=== PATIENT | male | born 1930 | race Caucasian/White ===

== ENCOUNTER 2018-01-11 16:43 | Inpatient (IN) | END 2018-01-17 15:28 | disposition home or self-care (01) | DRG 659 ==

== ENCOUNTER 2018-09-07 08:49 | Inpatient (IN) | payer MEDICARE, OTHER ==
[~2018-09-07] VITALS: Ht 162.6 cm; Wt 67.4 kg
[~2018-09-07 08:49] MED LIST: ALLO100T PO; AMLO5TAB4 PO; ASPI81TA52 PO; CALC1TAB93 PO; FER325 PO; ICOS1CAP PO; MEGE40TA2 PO; TAMS0.4C2 PO
[2018-09-07] MEDS ORDERED: morphine 4 MG/ML VIAL IV STA (09:08)
[2018-09-07] MEDS ORDERED: ONDANSETRON 4 MG INJ IV STA (09:08)
[2018-09-07] MEDS ORDERED: SOD CHLORIDE 0.9% 1,000 ML IV STA (09:08)
--- NOTE | 2018-09-07 09:43 | ERD ---
ER Documentation Chief Complaint Chief Complaint RIGHT LOWER QUADRANT RADIATING TO BACK X2 DAYS, VOMITTING YESTERDAY HPI This is an 88-year-old male with a past medical history of hypertension and hydronephrosis with previous urethral stents that have subsequently been removed. The patient presents to the emergency department complaining of right lower quadrant pain for the past 48 hours. He states the pain radiates to his back. States the pain is 10 out of 10 in intensity. The pain is been persistent. He complains of frequent urination and dysuria but denies any urgency. He also indicates that he has been having a tactile fever with shaking chills. No antipyretics were taken prior to arrival. He had 2 episodes of n onbloody nonbilious emesis since the onset of his pain. He has had normal bowel movements with no constipation or diarrhea. He denies any shortness of breath. He has no chest pain. ROS All systems reviewed and are negative except as per history of present illness. Medications Home Meds Reported Medications Allopurinol* (Allopurinol*) 100 Mg Tablet, 100 MG PO DAILY, TAB 09/07/18 Amlodipine Besylate* (Norvasc*) 5 Mg Tablet, 5 MG PO DAILY, TAB 09/07/18 Aspirin* (Aspirin* EC) 81 Mg Tablet.dr, 81 MG PO DAILY, TAB 09/07/18 Tamsulosin Hcl* (Flomax*) 0.4 Mg Cap.er.24h, 0.4 MG PO DAILY, CAP 09/07/18 Metoprolol Tartrate* (Lopressor*) 25 Mg Tab, 25 MG PO BID, #60 TAB 09/07/18 Calcium Carbonate/Vitamin D3 (OYSTER SHELL 500 MG + VIT D TB) 1 Each Tablet, 1 EACH PO DAILY, TAB 09/07/18 Ferrous Sulfate* (Ferrous Sulfate*) 325 Mg Tabec, 650 MG PO DAILY, TAB 09/07/18 Megestrol Acetate* (Megestrol Acetate*) 40 Mg Tablet, 40 MG PO DAILY, TAB 09/07/18 Cyanocobalamin (Vitamin B-12) (Vitamin B-12) 1,000 Mcg Capsule, 1000 MCG PO DAILY, CAP 09/07/18 Icosapent Ethyl (VASCEPA) 1 Gm Capsule, 1 GM PO DAILY, CAP 09/07/18 Discontinued Reported Medications Icosapent Ethyl (VASCEPA) 1 Gm Capsule, 2 GM PO BID, CAP 01/11/18 Megestrol Acetate* (Megestrol Acetate*) 40 Mg Tablet, 40 MG PO DAILY, TAB 01/11/18 Allopurinol* (Allopurinol*) 100 Mg Tablet, 100 MG PO DAILY, TAB 01/11/18 Amlodipine Besylate* (Norvasc*) 5 Mg Tablet, 5 MG PO DAILY, TAB 01/11/18 Ferrous Sulfate* (Ferrous Sulfate*) 325 Mg Tabec, 325 MG PO BID, TAB 01/11/18 Calcium Carbonate/Vitamin D3 (OYSTER SHELL 500 MG + VIT D TB) 1 Each Tablet, 1 EACH PO BID, TAB 01/11/18 Tamsulosin Hcl* (Tamsulosin Hcl*) 0.4 Mg Cap.er.24h, 0.4 MG PO HS, CAP 01/11/18 Aspirin (Low Dose Aspirin) 81 Mg Tablet.dr, 81 MG PO DAILY, #30 TAB 01/11/18 Allergies Allergies: Coded Allergies: No Known Allergy (Unverified , 09/07/18) PMhx/Soc History of Surgery: Yes (CARDIAC STENTS, FEMORAL STENTS, BYPASS, CAD) Anesthesia Reaction: No Hx Neurological Disorder: No Hx Respiratory Disorders: No Hx Cardiac Disorders: Yes (CAD) Hx Psychiatric Problems: No Hx Miscellaneous Medical Probl: Yes (BPH, GOUT, anemia) Hx Alcohol Use: No Hx Substance Use: No Hx Tobacco Use: No Smoking Status: Never smoker Physical Exam Vitals Vital Signs Date Temp Pulse Resp B/P (MAP) Pulse Ox O2 O2 Flow FiO2 Time Delivery Rate 09/07/18 113 20 137/69 96 Room Air 13:22 (91) 09/07/18 98.3 123 16 142/93 97 Room Air 11:00 (109) 09/07/18 98.0 111 18 153/82 99 09:02 (105) Physical Exam Constitutional:Well-developed. Well-nourished. HEENT:Normocephalic. Atraumatic.Pupils were equal round reactive to light. Moist mucous membranes.No tonsillar exudates. Neck: No nuchal rigidity. No lymphadenopathy. No posterior cervical spine tenderness or step-offs. Respiratory: Not using accessory muscles of respiration.Lungs were clear to auscultation bilaterally. No rhonchi. No rales. No wheezing. Cardiovascular: Regular rate regular rhythm.No murmurs. No rubs were appreciated.S1, S2 normal. Distal pulses are palpable 2+ bilaterally. GI: Abdomen was soft. Right lower quadrant tenderness. Negative Herrera sign. Obturator sign negative. Psoas sign negative. Right CVA tenderness. Non Distended. No pulsatile abdominal masses or bruits. No rebound. No guarding. Bowel sounds were present and normal. Muscle skeletal: Full range of motion of both the upper and lower extremities bilaterally.Normal muscle tone.No assymetrical calf tenderness or swelling. Skin: No petechia, no purpura. No lesions on the palms or the soles of the feet. No maculopapular rash. NEURO: Patient was alert, awake, orientated x3.No facial droop. Gait observed and normal with no ataxia.Speech had regular rate and rhythm. No focal ronnie rological deficits. Result Diagram: 09/07/18 0944 09/07/18 0944 Results 24 hrs Laboratory Tests Test 09/07/18 09:44 White Blood Count 13.0 10^3/ul Red Blood Count 3.36 10^6/ul Hemoglobin 9.7 g/dl Hematocrit 30.7 % Mean Corpuscular Volume 91.4 fl Mean Corpuscular Hemoglobin 28.9 pg Mean Corpuscular Hemoglobin Concent 31.6 g/dl Red Cell Distribution Width 15.8 % Platelet Count 157 10^3/UL Mean Platelet Volume 11.1 fl Immature Granulocytes % 0.300 % Neutrophils % 54.4 % Lymphocytes % 38.3 % Monocytes % 5.3 % Eosinophils % 1.2 % Basophils % 0.5 % Nucleated Red Blood Cells % 0.0 /100WBC Immature Granulocytes # 0.040 10^3/ul Neutrophils # 7.1 10^3/ul Lymphocytes # 5.0 10^3/ul Monocytes # 0.7 10^3/ul Eosinophils # 0.2 10^3/ul Basophils # 0.1 10^3/ul Nucleated Red Blood Cells # 0.0 10^3/ul Prothrombin Time 14.7 Sec Prothrombin Time Ratio 1.1 INR International Normalized Ratio 1.14 Activated Partial Thromboplast Time 32.0 Sec Urine Color YELLOW Urine Clarity CLEAR Urine pH 6.0 Urine Specific [place] 1.010 Urine Ketones NEGATIVE mg/dL Urine Nitrite NEGATIVE mg/dL Urine Bilirubin NEGATIVE mg/dL Urine Urobilinogen NEGATIVE mg/dL Urine Leukocyte Esterase 2+ Francis/ul Urine Microscopic RBC 137 /HPF Urine Microscopic WBC 30 /HPF Urine Hemoglobin 3+ mg/dL Urine Glucose NEGATIVE mg/dL Urine Total Protein 1+ mg/dl Sodium Level 143 mmol/L Potassium Level 4.4 mmol/L Chloride Level 114 mmol/L Carbon Dioxide Level 18 mmol/L Anion Gap 11 Blood Urea Nitrogen 45 mg/dl Creatinine 3.44 mg/dl Est Glomerular Filtrat Rate mL/min mL/min Glucose Level 155 mg/dl Calcium Level 8.8 mg/dl Total Bilirubin 0.5 mg/dl Direct Bilirubin 0.00 mg/dl Indirect Bilirubin 0.5 mg/dl Aspartate Amino Transf (AST/SGOT) 11 IU/L Alanine Aminotransferase (ALT/SGPT) 10 IU/L Alkaline Phosphatase 55 IU/L Troponin I < 0.012 ng/ml Total Protein 6.9 g/dl Albumin 3.8 g/dl Globulin 3.10 g/dl Albumin/Globulin Ratio 1.22 Amylase Level 86 U/L Lipase 90 U/L Current Medications Medications Dose Sig/Ema Start Time Status Last (Trade) Ordered Route PRN Stop Time Admin Dose Reason Admin Sodium 1,000 ml @ Q1H STAT 09/07/18 DC 09/07/18 Chloride 1,000 mls/hr IV 09:08 09:49 09/07/18 10:07 Morphine 4 mg ONCE STAT 09/07/18 DC 09/07/18 Sulfate IV 09:08 09:49 (morphine) 09/07/18 09:09 Ondansetron 4 mg ONCE STAT 09/07/18 DC 09/07/18 HCl (Zofran IV 09:08 09:49 Inj) 09/07/18 09:09 Diltiazem 5 mg ONCE ONCE 09/07/18 DC 09/07/18 HCl IV 12:00 11:45 (Cardizem Iv) 09/07/18 12:01 Procedures/[facility] This patient presented to the emergency department with abdominal pain and was seen and evaluated by myself. My differential diagnosis included but was not limited to abdominal aortic aneurysm, appendicitis, pancreatitis, perforated peptic ulcer, perforated viscus, Boerhaaves syndrome or visceral pain such as diverticulitis, DKA, esophagitis, hepatitis or bowel obstruction. The patient was placed on a school bus monitor, continuous pulse oximetry, and IV access was established by nursing staff. Patient given intravenous morphine and Zofran. I obtained a 12-lead EKG tracing to look for atypical myocardial infarction. 12 Lead EKG tracing ordered and reviewed by myself showed: Sinus tachycardia 119 prolonged at 224 ms in all leads consistent with a first- degree AV block. Left axis deviation bpm and no arrhythmia. NV interval QRS duration normal. No ST segment elevation No ST segment depression. No changes consistent with acute ischemia. Given the patient's physical exam findings I do feel is necessary to obtain a CT scan of the abdomen. This was done without contrast due to the patient's elevated creatinine. This is reviewed by the radiologist and indicate the following 1. Left inguinal hernia, containing a short segment of the sigmoid colon without evidence of obstruction or strangulation. This is unchanged since prior study. 2. No gross evidence of bowel obstruction. Stool filled loops of large bowel suggestive of constipation. The appendix is within normal limits. 3. Bilateral hydroureteronephrosis, bilateral double-J ureteric stent in place. There is nonspecific bilateral perinephric fatty stranding. Degree of hydronephrosis is unchanged since prior study. 4. Atherosclerotic calcification of the aorta. Aortoiliac stent graft. 5. Thickening of the travis of the bladder, cannot exclude cystitis. 6. No evidence of free fluid or free air. No gross focal fluid collections. Observation Note: Time: 4 hours Family Hx: No Hypertension Evaluation: Multiple exams showed no improvement of patient's symptoms. The patient continued to have pain. The patient did have a urinary tract infection was given IV ceftriaxone. The patient did have worsening of his renal function as in December 2017 the patient's creatinine was 2.7. Today the patient's creatinine was 3.44. I did feel the patient required admission for IV antibiotics as he did remain tachycardic despite receiving 5 mg of diltiazem. His heart rate of range between 110 and 140. He could not did not complain of any chest pain. He will be admitted to the hospitalist and will go to the telemetry service. The patient also received IV fluids. The patient will be admitted to his primary care physician Dr. Asad Rios Diagnosis: Primary Impression: Renal failure (ARF), acute on chronic Acute renal failure type: unspecified Chronic kidney disease stage: unspecified stage Qualified Codes: N17.9 - Acute kidney failure, unspecified; N18.9 - Chronic kidney disease, unspecified Additional Impressions: Pyelonephritis Tachycardia Condition: Serious TARA THACKER MD Sep 07, 2018 09:43
[2018-09-07] MEDS ORDERED: ICOS1CAP PO (11:00)
[2018-09-07] MEDS ORDERED: CYAN-23 PO (11:01)
[2018-09-07] MEDS ORDERED: FER325 PO (11:02)
[2018-09-07] MEDS ORDERED: MEGE40TA2 PO (11:02)
[2018-09-07] MEDS ORDERED: METO-448 PO (11:03)
[2018-09-07] MEDS ORDERED: CALC1TAB93 PO (11:03)
[2018-09-07] MEDS ORDERED: ASPI-817 PO (11:04)
[2018-09-07] MEDS ORDERED: TAMS-14 PO (11:04)
[2018-09-07] MEDS ORDERED: AMLO5TAB4 PO (11:04)
[2018-09-07] MEDS ORDERED: ALLO100T PO (11:05)
[2018-09-07] MEDS ORDERED: DILTIAZEM 25 MG INJ IV ONE (12:00)
[2018-09-07] MEDS ORDERED: ACETAMINOPHEN 325 MG TAB PO PRN (14:00)
[2018-09-07] MEDS ORDERED: SOD CHLORIDE 0.9% 1,000 ML IV SCH (14:00)
[2018-09-07] MEDS ORDERED: ONDANSETRON 4 MG INJ IV PRN (14:00)
[2018-09-07] MEDS ORDERED: CEFEPIME 2GM/50 ML (PMX) 50 ML IVPB STA (15:11)
[2018-09-07 17:11] VITALS: Ht 162.6 cm; Wt 67.4 kg
[2018-09-07 17:12] VITALS: BP 138/70; PULSE 107; RESP 18
[2018-09-07 18:43] VITALS: PULSE 141
[2018-09-07 19:45] VITALS: BP 129/59; PULSE 90; RESP 18
[2018-09-07 20:00] VITALS: PULSE 108
[2018-09-07] MEDS ORDERED: CEFTAZIDIME 1GM/50 ML (PMX) 50 ML IVPB SCH (20:00)
[2018-09-07] MEDS: CEFTRIAXONE 1 GM/NS 50 ML IVPB SCH (20:07)
[2018-09-07] MEDS: HEPARIN 5,000 UNIT/1 ML VIAL SC SCH (20:33)
[2018-09-07] MEDS ORDERED: METOPROLOL 25 MG TAB PO SCH (21:00)
[2018-09-08] VITALS (11 sets, daily range): BP systolic 125–150; BP diastolic 65–88; PULSE 85–119; RESP 16–19
--- NOTE | 2018-09-08 07:06 | CONS ---
Assessment/Plan Assessment/Plan Hospital Course (Demo Recall) 1. Tachycardia: Appears to be sinus with frequent PACs so far no clear atrial fibrillation 2. Coronary artery disease with history of non-ST elevation myocardial infarction in 2012, currently with no more angina 3. History of PCI of his right coronary artery in 2012 4. Acute renal failure 5. Urinary obstruction: Status post cystoscopy on 01/12/2018 6. Hyperkalemia 7. Dyslipidemia 8. Peripheral vascular disease 9. Hypertension 10. Anemia 11. History of pulmonary nodule Recommendations: I will increase the metoprolol. Titrated as needed. Antibiotic management as per IM/and possibly ID operational risk consultant Renal work-up and treatment as per Dr. Kamara Thank you for his referral. We will continue to follow along with you BRONSON KISER MD [facility] Consultation Date/Type/Reason Admit Date/Time Sep 07, 2018 at 13:43 Date of Consultation: Sep 08, 2018 Type of Consult Cardiology Reason for Consultation Tachycardia, rule out arrhythmia Requesting Provider: LORENZO KAMARA DO Date/Time of Note DATE: 09/08/18 TIME: 07:01 Hx of Present Illness Interventional cardiology consultation note Chief complaint: Abdominal pain/nausea vomiting Reason for consult: Tachycardia rule out atrial fibrillation History of present illness: Thank you for this referral. History was obtained from the patient and discussion with physicians and staff. From review of the old charts. This is an 88-year-old male with a past medical history of hypertension, history of coronary artery disease, status post PCI of his right coronary artery a few years ago, history of peripheral vascular disease, history of dyslipidemia, history of chronic kidney disease history of osteoporosis who presents to [facility] with complaints of abdominal pain and nausea. Patient has been diagnosed with a urinary tract infection. Patient has been tachycardic. Possible a possible went to atrial fibrillation however review of the rhythm so myself to the patient has remained in sinus rhythm but has had very frequent PACs that makes the rhythm very irregular. Patient denies any left-sided chest pain or pressure. He does not walk much Patient himself is a very poor historian. At time he does not even know why he is in the hospital PAST MEDICAL HISTORY: As stated above, history of chronic kidney disease, history of hypertension, dyslipidemia, peripheral vascular disease. Coronary artery disease status post non-ST elevation myocardial infarction, PCI of his right coronary artery in 2012 PAST SURGICAL HISTORY: PCI of his right coronary artery in June 2012, status post aortofemoral bypass. FAMILY HISTORY: No family history of early coronary artery disease SOCIAL HISTORY: Does not drink, smoke or do drugs. He has quit smoking many years ago MEDICATIONS: Patient's medications had been reviewed and reconciled. ALLERGIES: NO KNOWN DRUG ALLERGIES. Review of system: Patient denies all others except for above-mentioned Past Medical History Home Meds Reported Medications Allopurinol* (Allopurinol*) 100 Mg Tablet, 100 MG PO DAILY, TAB 09/07/18 Amlodipine Besylate* (Norvasc*) 5 Mg Tablet, 5 MG PO DAILY, TAB 09/07/18 Aspirin* (Aspirin* EC) 81 Mg Tablet.dr, 81 MG PO DAILY, TAB 09/07/18 Tamsulosin Hcl* (Flomax*) 0.4 Mg Cap.er.24h, 0.4 MG PO DAILY, CAP 09/07/18 Metoprolol Tartrate* (Lopressor*) 25 Mg Tab, 25 MG PO BID, #60 TAB 09/07/18 Calcium Carbonate/Vitamin D3 (OYSTER SHELL 500 MG + VIT D TB) 1 Each Tablet, 1 EACH PO DAILY, TAB 09/07/18 Ferrous Sulfate* (Ferrous Sulfate*) 325 Mg Tabec, 650 MG PO DAILY, TAB 09/07/18 Megestrol Acetate* (Megestrol Acetate*) 40 Mg Tablet, 40 MG PO DAILY, TAB 09/07/18 Cyanocobalamin (Vitamin B-12) (Vitamin B-12) 1,000 Mcg Capsule, 1000 MCG PO DAILY, CAP 09/07/18 Icosapent Ethyl (VASCEPA) 1 Gm Capsule, 1 GM PO DAILY, CAP 09/07/18 Discontinued Reported Medications Icosapent Ethyl (VASCEPA) 1 Gm Capsule, 2 GM PO BID, CAP 01/11/18 Megestrol Acetate* (Megestrol Acetate*) 40 Mg Tablet, 40 MG PO DAILY, TAB 01/11/18 Allopurinol* (Allopurinol*) 100 Mg Tablet, 100 MG PO DAILY, TAB 01/11/18 Amlodipine Besylate* (Norvasc*) 5 Mg Tablet, 5 MG PO DAILY, TAB 01/11/18 Ferrous Sulfate* (Ferrous Sulfate*) 325 Mg Tabec, 325 MG PO BID, TAB 01/11/18 Calcium Carbonate/Vitamin D3 (OYSTER SHELL 500 MG + VIT D TB) 1 Each Tablet, 1 EACH PO BID, TAB 01/11/18 Tamsulosin Hcl* (Tamsulosin Hcl*) 0.4 Mg Cap.er.24h, 0.4 MG PO HS, CAP 01/11/18 Aspirin (Low Dose Aspirin) 81 Mg Tablet.dr, 81 MG PO DAILY, #30 TAB 01/11/18 Medications Current Medications Ondansetron HCl (Zofran Inj) 4 mg ER BRIDGE PRN IV NAUSEA/VOMITING; Start 09/07/18 at 14:00; Stop 09/08/18 at 13:59 Acetaminophen (Tylenol Tab) 650 mg ER BRIDGE PRN PO .MILD PAIN 1-3 OR TEMP; Start 09/07/18 at 14:00; Stop 09/08/18 at 13:59 Allopurinol (Zyloprim) 100 mg DAILY PO ; Start 09/08/18 at 09:00 Aspirin (Halfprin) 81 mg DAILY PO ; Start 09/08/18 at 09:00 Calcium/Vitamin D (Oyster Shell/ Vit-D (500/200)) 1 tab DAILY PO ; Start 09/08/18 at 09:00 Ferrous Sulfate (Ferrous Sulfate (Ec)) 650 mg DAILY PO ; Start 09/08/18 at 09:00 Megestrol Acetate (Megace) 40 mg DAILY PO ; Start 09/08/18 at 09:00 Tamsulosin HCl (Flomax) 0.4 mg DAILY@2100 PO ; Start 09/08/18 at 21:00 Sodium Chloride 1,000 ml @ 50 mls/hr Q20H IV Last administered on 09/07/18at 18:06; Admin Dose 50 MLS/HR; Start 09/07/18 at 14:00 Ceftriaxone Sodium 50 ml @ 100 mls/hr Q24H IVPB Last administered on 09/07/18at 20:07; Admin Dose 100 MLS/HR; Start 09/07/18 at 20:00 Heparin Sodium (Porcine) (Heparin (5000 Units/1ml)) 5,000 unit BID SC Last administered on 09/07/18at 20:33; Admin Dose 5,000 UNIT; Start 09/07/18 at 21:00 Metoprolol Tartrate (Lopressor) 50 mg BID PO ; Start 09/08/18 at 09:00; Status UNV Allergies: Coded Allergies: No Known Allergy (Unverified , 09/07/18) Past Surgical History Past Surgical Hx: other Social History Smoking Status: Former smoker Exam/Review of Systems Vital Signs Vitals Vital Signs Date Temp Pulse Resp B/P (MAP) Pulse Ox O2 O2 Flow FiO2 Time Delivery Rate 09/08/18 94 04:00 09/08/18 99.0 18 142/65 92 Room Air 03:35 (90) Intake and Output 09/07/18 09/07/18 09/08/18 1515:00 23:00 07:00 IntakeIntake Total 50 ml 690 ml OutputOutput Total 700 ml BalanceBalance 50 ml -10 ml Exam Exam General: no acute distress HEENT: NC/AT. pupils are equal. round. NECK: NO JVD. no stridor. CV: Tachycardic. systolic murmur; no gallop or rubs. PULM: no wheezing or rhonchi. GI: SOFT, no tenderness, ND, no rebound or guarding Extremity: trace B/L LE edema. no clubbing. neuro: awake and alert, OX2. Psych: calm and pleasant rectal: deferred : normal EKG was presented to sinus rhythm with frequent PACs Review of the old chart showed 2018 echocardiogram which was personally reviewed and showed normal ejection fraction about 55% Labs Result Diagram: 09/08/18 0559 09/08/18 0559 Results 24hrs Laboratory Tests Test 09/07/18 09:44 09/07/18 15:37 09/08/18 05:59 White Blood Count 13.0 #H 11.2 H Red Blood Count 3.36 #L 3.10 L Hemoglobin 9.7 #L 9.1 L Hematocrit 30.7 #L 28.3 L Mean Corpuscular Volume 91.4 91.3 Mean Corpuscular Hemoglobin 28.9 L 29.4 Mean Corpuscular Hemoglobin Concent 31.6 L 32.2 Red Cell Distribution Width 15.8 H 15.5 H Platelet Count 157 154 Mean Platelet Volume 11.1 H 11.5 H Immature Granulocytes % 0.300 0.400 Neutrophils % 54.4 49.7 Lymphocytes % 38.3 40.9 Monocytes % 5.3 6.4 Eosinophils % 1.2 2.2 Basophils % 0.5 0.4 Nucleated Red Blood Cells % 0.0 0.0 Immature Granulocytes # 0.040 H 0.040 H Neutrophils # 7.1 5.5 Lymphocytes # 5.0 H 4.6 H Monocytes # 0.7 0.7 Eosinophils # 0.2 0.3 Basophils # 0.1 0.1 Nucleated Red Blood Cells # 0.0 0.0 Prothrombin Time 14.7 Prothrombin Time Ratio 1.1 INR International Normalized Ratio 1.14 Activated Partial Thromboplast Time 32.0 Urine Color YELLOW Urine Clarity CLEAR Urine pH 6.0 Urine Specific [place] 1.010 Urine Ketones NEGATIVE Urine Nitrite NEGATIVE Urine Bilirubin NEGATIVE Urine Urobilinogen NEGATIVE Urine Leukocyte Esterase 2+ H Urine Microscopic RBC 137 H Urine Microscopic WBC 30 H Urine Hemoglobin 3+ H Urine Glucose NEGATIVE Urine Total Protein 1+ H Sodium Level 143 145 H Potassium Level 4.4 5.3 H Chloride Level 114 H 119 H Carbon Dioxide Level 18 L 18 L Anion Gap 11 8 Blood Urea Nitrogen 45 H 41 H Creatinine 3.44 H 3.32 H Est Glomerular Filtrat Rate mL/min Glucose Level 155 100 # Hemoglobin A1c 5.6 Calcium Level 8.8 8.5 Total Bilirubin 0.5 Direct Bilirubin 0.00 Indirect Bilirubin 0.5 Aspartate Amino Transf (AST/SGOT) 11 L Alanine Aminotransferase (ALT/SGPT) 10 L Alkaline Phosphatase 55 Troponin I < 0.012 Total Protein 6.9 Albumin 3.8 Globulin 3.10 Albumin/Globulin Ratio 1.22 Amylase Level 86 Lipase 90 POC Venous Lactate 1.5 Phosphorus Level 3.7 Magnesium Level 1.8 Medications Medications Current Medications Ondansetron HCl (Zofran Inj) 4 mg ER BRIDGE PRN IV NAUSEA/VOMITING; Start 09/07/18 at 14:00; Stop 09/08/18 at 13:59 Acetaminophen (Tylenol Tab) 650 mg ER BRIDGE PRN PO .MILD PAIN 1-3 OR TEMP; Start 09/07/18 at 14:00; Stop 09/08/18 at 13:59 Allopurinol (Zyloprim) 100 mg DAILY PO ; Start 09/08/18 at 09:00 Aspirin (Halfprin) 81 mg DAILY PO ; Start 09/08/18 at 09:00 Calcium/Vitamin D (Oyster Shell/ Vit-D (500/200)) 1 tab DAILY PO ; Start 09/08/18 at 09:00 Ferrous Sulfate (Ferrous Sulfate (Ec)) 650 mg DAILY PO ; Start 09/08/18 at 09:00 Megestrol Acetate (Megace) 40 mg DAILY PO ; Start 09/08/18 at 09:00 Tamsulosin HCl (Flomax) 0.4 mg DAILY@2100 PO ; Start 09/08/18 at 21:00 Sodium Chloride 1,000 ml @ 50 mls/hr Q20H IV Last administered on 09/07/18at 18:06; Admin Dose 50 MLS/HR; Start 09/07/18 at 14:00 Ceftriaxone Sodium 50 ml @ 100 mls/hr Q24H IVPB Last administered on 09/07/18at 20:07; Admin Dose 100 MLS/HR; Start 09/07/18 at 20:00 Heparin Sodium (Porcine) (Heparin (5000 Units/1ml)) 5,000 unit BID SC Last administered on 09/07/18at 20:33; Admin Dose 5,000 UNIT; Start 09/07/18 at 21:00 Metoprolol Tartrate (Lopressor) 50 mg BID PO ; Start 09/08/18 at 09:00; Status BRONSON YOUNG MD Sep 08, 2018 07:06
--- NOTE | 2018-09-08 09:05 | CONS ---
DATE OF ADMISSION: 09/07/2018 DATE OF CONSULTATION: 09/07/2018 TYPE OF CONSULTATION: Infectious Disease. REASON FOR CONSULTATION: Antibiotic management. HISTORY OF PRESENT ILLNESS: Gio Bird is an 88-year-old male who comes in with right lower quadrant pain radiating to his back with nausea and vomiting yesterday. The patient's history includes: 1. Hypertension. 2. Hydronephrosis with previous ureteral stents that have been subsequently removed. The patient co mes in with right lower quadrant pain of 48 hours duration. The pain radiates to the back and is 10/ 10 in intensity, is persistent. He complains of frequent urination and dysuria without urgency. He has had tactile fever without shaking chills. No antipyretics were taken prior to arrival, he had 2 episodes of nonbloody, nonbilious emesis. He has had normal bowel movements with no constipation or diarrhea. He denies any shortness of breath. PAST MEDICAL HISTORY: Operations include cardiac stent, femoral stents, bypass and coronary artery d isease. The patient has BPH, gout, anemia. FAMILY HISTORY: Noncontributory. SOCIAL HISTORY: He does not smoke, drink or abuse drugs. ALLERGIES: NONE TO PENICILLIN, SULFA OR FOODS. MEDICATIONS: Per chart. REVIEW OF SYSTEMS: As per HPI. PHYSICAL EXAMINATION: GENERAL: The patient is well-developed, well-nourished male who is alert, responsive, in no acute di stress. VITAL SIGNS: Stable. He is afebrile. SKIN: Without generalized rash. HEENT: Within normal limits. NECK: Supple. LYMPH NODES: None palpable. CHEST: Decreased breath sounds at the bases. HEART: Without murmur or gallop. ABDOMEN: Soft with right lower quadrant tenderness. Negative Herrera sign. He has right CVA tendern ess. No pulsatile masses. EXTREMITIES: Without cyanosis, clubbing, or edema. RECTAL AND GENITAL: Deferred. NEUROLOGIC: No focal neurological abnormalities. LABORATORY DATA: White count 13,000, H and H 9.7 and 30.7, platelet count 157,000 with 54% neutrophi ls. BUN and creatinine is 45/3.44, consistent with renal failure and a glucose random of 155. His urinalysis shows 2+ leukocyte esterase, 30 white cells per high-power field, 137 RBCs per high-power field. HOSPITAL COURSE: The patient's chest x-ray shows no evidence for active cardiopulmonary disease, tone cified thoracic aortic arch. No evidence for an infiltrate. CT scan of the abdomen and pelvis shows bilateral bronchiectasis with bilateral reticular interstitial opacities, hepatic morphology within normal limits. Gallbladder unremarkable. No evidence of intrahepatic or extrahepatic biliary dilata tion. The spleen and pancreas are within normal limits. Both adrenals are within normal limits. Bi lateral double J ureteric stents are identified. Nonspecific bilateral perinephric fatty stranding, both kidneys are in anatomic position and aortoiliac stent graft is noted. CT scan shows a left ingu inal hernia segment of the sigmoid colon without evidence of obstruction and strangulation double J u reteric stents are noted in place. Prostate gland is mildly enlarged. Rectosigmoid colon demonstrat es stool. There are bilateral reticular hydroceles. IMPRESSION AND PLAN: The patient seems to have urinary tract infection and should be started on at l east the cefepime if not meropenem. At the present time, I do not see that the patient is on any ant ibiotics. I will dictate my findings to the hospitalist. Dictated By: NI CHONG MD, JD/VINICIO Conf#: [id number] DID#: [id number]
--- NOTE | 2018-09-08 10:22 | HP ---
DATE OF ADMISSION: 09/07/2018 CHIEF COMPLAINT: Fevers, chills, tachycardia. HISTORY OF PRESENT ILLNESS: This is an 88-year-old male with a past medical history of hypertension, history of coronary artery disease, history of peripheral vascular disease status post stent, histor y of dyslipidemia, history of chronic kidney disease stage IV, baseline creatinine around 2.5 mg/dL, history of osteoporosis and history of bilateral hydroureteronephrosis, status post bilateral ureter double J stent who presents to [facility] with complaints of fevers, chills, abdomi nal pain. The patient in 12/2017, was diagnosed with bilateral hydroureteronephrosis. During that t denia, the patient was seen by urologist, Dr. Slater, and has had bilateral ureteral double-J stent pl acement. The patient has been having removal and replacement of the stent every 2 [address] Slater. Most recently, patient's double J stents were replaced approximately 4 weeks ago. The pat nael now presents with complaints of right lower quadrant pain for the last 48 hours with radiation t o his back. The patient is also complaining about frequent urination. The patient also describes geiger ving chills. Upon arrival to the emergency room, the patient had 2 episodes of nonbilious emesis. T he patient was noted to have heart rate of 123. In the emergency room, the patient had a CT scan of bilateral hydroureteronephrosis with double-J stent placement. No significant change. The patient w as given IV fluids, antibiotic therapy, was given IV Cardizem and admitted to telemetry for evaluatio n. Upon my evaluation of the patient at this time, he is currently stable. He denies any hemoptysis, he matemesis or hematochezia. The patient continues to describe back pain, but states it is improving. He denies any rashes. PAST MEDICAL HISTORY: As stated above, history of hypertension, history of peripheral vascular disea se, history of chronic kidney disease stage IIIB, history of bilateral hydroureteronephrosis status p ost change double-J stent placement, history of coronary artery disease, history of dyslipidemia. PAST SURGICAL HISTORY: Status post PCI, status post aortofemoral bypass, status post bilateral urete ral stent placement. FAMILY HISTORY: No family history of kidney disease. SOCIAL HISTORY: He does not drink, smoke or do drugs. MEDICATIONS: Reviewed. ALLERGIES: NO KNOWN DRUG ALLERGIES. REVIEW OF SYSTEMS: A 14-point review of systems was conducted. Pertinent positives stated in HPI, o therwise negative. PHYSICAL EXAMINATION: VITAL SIGNS: Blood pressure is 138/70, respirations 18, pulse 107, temperature 98.6. HEENT: Head is normocephalic. Pupils are reactive to light. NECK: Supple. HEART: Tachycardic. LUNGS: Show diminished breath sounds at the base. ABDOMEN: Soft, mild tenderness to palpation. No rebound or guarding. EXTREMITIES: Negative for clubbing, cyanosis, no edema. DERMATOLOGIC: No rashes. MUSCULOSKELETAL: No joint effusion. NEUROLOGIC: No focal deficits. LABORATORY DATA: Reviewed. Urinalysis has been reviewed. IMAGING STUDIES: Reviewed. ASSESSMENT AND PLAN: This is an 88-year-old male who presents with: 1. Sepsis, etiology is secondary to urinary tract infection, cystitis, possible pyelonephritis. The patient's urinalysis showed evidence of pyuria. CT abdomen and pelvis was obtained, which showed ev idence of perinephric stranding. Plan at this point is to check blood cultures, urine cultures. We will continue the patient on broad spectrum antibiotic therapy. Continue IV fluids. We will place a n ID consult for evaluation and monitor. 2. Bilateral hydroureteronephrosis with double-J stent placement. The patient has a chronic hydrour eteronephrosis. Plan at this point is to get a urology consult for evaluation. We will continue to monitor. 3. Nonoliguric acute kidney injury on top of chronic kidney disease stage IV with previous baseline creatinine around 2.53 mg/dL. Etiology of acute kidney injury may be secondary to hemodynamics, volu me depletion, possible septic acute kidney injury. Plan at this point is to check UA with microanaly sis, check urine electrolytes. We will continue IV hydration, monitor renal function closely. 4. Metabolic acidosis secondary to acute kidney injury. Monitor closely. No need for bicarbonate t herapy. 5. Anemia. Continue to monitor hemoglobin and hematocrit levels. 7. Mineral bone disorder, monitor calcium and phosphorus levels. 8. Tachycardia. Etiology may be secondary to volume depletion and sepsis. Continue to monitor. Ca rdiology consult was placed for evaluation. 9. Hypertension. Continue current blood pressure regimen. 10. History of peripheral vascular disease status post bypass. Continue medical management. 11. General debility. Continue to monitor. 12. Abdominal pain, possibly due to cystitis. Continue to monitor. 13. Gastrointestinal and deep vein thrombosis prophylaxis. Please note I spent additional 30 minutes of [id number] time with the patient, discussing advanced directives and code status. The patient is FULL CODE. Dictated By: LORENZO GARCIA DO NR/NTS Conf#: [id number] DID#: [id number] CC: LORENZO GARCIA DO;*EndCC*
[2018-09-08] MEDS: CALCIUM/VITAMIN D (500/200) TAB PO SCH (10:50)
[2018-09-08] MEDS: ASPIRIN (EC) 81 MG TAB PO SCH (10:50)
[2018-09-08] MEDS: ALLOPURINOL 100 MG TAB PO SCH (10:51)
[2018-09-08] MEDS: MEGESTROL 40 MG TAB PO SCH (10:51)
[2018-09-08] MEDS: FERROUS SULFATE (EC) 325 MG TAB PO SCH (10:51)
[2018-09-08] MEDS: METOPROLOL 25 MG TAB PO SCH ×2 (10:51→20:35)
[2018-09-08] MEDS: SODIUM BICARBONATE IV SCH (10:53)
[2018-09-08] MEDS: DEXTROSE 5% IV SCH (10:53)
[2018-09-08] MEDS: HEPARIN 5,000 UNIT/1 ML VIAL SC SCH ×2 (11:04→20:46)
--- NOTE | 2018-09-08 13:29 | PN ---
DATE: 09/08/2018 SUBJECTIVE: The patient is stable. Continue to have episodes of PVCs on telemetry. No other acute events noted. OBJECTIVE: VITAL SIGNS: Blood pressure is 150/75, respirations 18, pulse 112, temperature 98.5. HEENT: Head is normocephalic. NECK: Supple. HEART: Regular rate. LUNGS: Show diminished breath sounds at the base. ABDOMEN: Soft, nontender to palpation without rebound or guarding. EXTREMITIES: Negative for clubbing, cyanosis, trace edema. DERMATOLOGIC: No rashes. MUSCULOSKELETAL: No joint effusion. NEUROLOGIC: No change in exam. MEDICATIONS: Reviewed. LABORATORY DATA: Reviewed. IMAGING STUDIES: Reviewed. ASSESSMENT AND PLAN: 1. Sepsis secondary to probable urinary tract infection, pyelonephritis. We will continue current a ntibiotic regimen. Follow up with Infectious Disease. Follow up cultures. 2. Nonoliguric acute kidney injury on top of chronic kidney disease with previous baseline creatinin e around 2.5 to 3 mg/dL. Etiology of acute kidney injury may be secondary to hemodynamics versus pro gression of chronic kidney disease. The patient does have chronic bilateral hydroureteronephrosis. No significant change per imaging studies. We will continue current treatment plan. Continue IV flu ids, monitor closely. 3. Chronic bilateral hydroureteronephrosis. The patient is status post double-J stent placement. C chantalue to monitor. Follow up with urology. 4. Metabolic acidosis secondary to acute kidney injury. We will start the patient on bicarbonate th erapy. 5. Mild hyperkalemia. Continue to monitor. The patient will be placed on renal diet. 6. Anemia. Continue to monitor hemoglobin and hematocrit levels. 7. Hypertension. Continue current blood pressure regimen. 8. History of peripheral vascular disease status post bypass. Continue current treatment plan. 9. History of coronary artery disease. Continue medical management. 10. Arrhythmia. Continue to monitor. Follow up with Cardiology. 11. Mineral bone disorder. 12. Gastrointestinal and deep vein thrombosis prophylaxis. 13. Hypernatremia. The patient will be placed on hypertonic fluid. Continue to encourage free wate r intake. Dictated By: LORENZO GARCIA DO NR/NTS Conf#: [id number] DID#: [id number] CC: LORENZO GARCIA DO;*EndCC*
--- NOTE | 2018-09-08 13:59 | CONS ---
Assessment/Plan Assessment/Plan Hospital Course (Demo Recall) No acute changes overnight patient is awake looks comfortable no fevers overnight WBC 11.2 no shift no bands BUN 41 creatinine 3.32 Urinalysis on admission was positive, urine culture preliminary negative CT of the abdomen and pelvis showed no gross evidence of bowel obstruction bilateral hydronephrosis, bilateral double-J ureteric stent in place nonspecific bilateral perinephric fatty stranding. Degree of hydronephrosis is unchanged since the prior study. Please see full report in the chart Antimicrobials: Patient is on Rocephin Physical examination: Well-developed fragile elderly man who is awake in no distress head atraumatic normocephalic neck is supple chest rise sy mmetrical breath sounds diminished bases heart S1-S2 abdomen soft bowel sounds present Assessment: 1. Systemic inflammatory response syndrome 2. Acute pyelonephritis 3. Chronic kidney disease 4. History of bilateral JJ stent placements 5. Peripheral arterial disease, history of bypass graft Plan: Patient remains stable, continue present care antibiotics await for urology evaluation Consultation Date/Type/Reason Admit Date/Time Sep 07, 2018 at 13:43 Initial Consult Date 09/08/18 Type of Consult id Requesting Provider: LORENZO GARCIA DO Date/Time of Note DATE: 09/08/18 TIME: 13:59 Exam/Review of Systems Exam Vitals Vital Signs Date Temp Pulse Resp B/P (MAP) Pulse Ox O2 O2 Flow FiO2 Time Delivery Rate 09/08/18 98.0 115 16 125/88 97 11:12 (100) 09/08/18 Room Air 03:35 Intake and Output 09/07/18 09/07/18 09/08/18 1515:00 23:00 07:00 IntakeIntake Total 50 ml 690 ml OutputOutput Total 700 ml BalanceBalance 50 ml -10 ml Results Result Diagram: 09/08/18 0559 09/08/18 0559 Results 24hrs Laboratory Tests Test 09/07/18 15:37 09/08/18 05:59 POC Venous Lactate 1.5 White Blood Count 11.2 H Red Blood Count 3.10 L Hemoglobin 9.1 L Hematocrit 28.3 L Mean Corpuscular Volume 91.3 Mean Corpuscular Hemoglobin 29.4 Mean Corpuscular Hemoglobin Concent 32.2 Red Cell Distribution Width 15.5 H Platelet Count 154 Mean Platelet Volume 11.5 H Immature Granulocytes % 0.400 Neutrophils % 49.7 Lymphocytes % 40.9 Monocytes % 6.4 Eosinophils % 2.2 Basophils % 0.4 Nucleated Red Blood Cells % 0.0 Immature Granulocytes # 0.040 H Neutrophils # 5.5 Lymphocytes # 4.6 H Monocytes # 0.7 Eosinophils # 0.3 Basophils # 0.1 Nucleated Red Blood Cells # 0.0 Sodium Level 145 H Potassium Level 5.3 H Chloride Level 119 H Carbon Dioxide Level 18 L Anion Gap 8 Blood Urea Nitrogen 41 H Creatinine 3.32 H Est Glomerular Filtrat Rate mL/min Glucose Level 100 # Calcium Level 8.5 Phosphorus Level 3.7 Magnesium Level 1.8 Medications Medication Current Medications Allopurinol (Zyloprim) 100 mg DAILY PO Last administered on 09/08/18 10:51; Admin Dose 100 MG; Start 09/08/18 at 09:00 Aspirin (Halfprin) 81 mg DAILY PO Last administered on 09/08/18 10:50; Admin Dose 81 MG; Start 09/08/18 at 09:00 Calcium/Vitamin D (Oyster Shell/ Vit-D (500/200)) 1 tab DAILY PO Last administered on 09/08/18 10:50; Admin Dose 1 TAB; Start 09/08/18 at 09:00 Ferrous Sulfate (Ferrous Sulfate (Ec)) 650 mg DAILY PO Last administered on 09/08/18 10:51; Admin Dose 650 MG; Start 09/08/18 at 09:00 Megestrol Acetate (Megace) 40 mg DAILY PO Last administered on 09/08/18 10:51; Admin Dose 40 MG; Start 09/08/18 at 09:00 Tamsulosin HCl (Flomax) 0.4 mg DAILY@2100 PO ; Start 09/08/18 at 21:00 Ceftriaxone Sodium 50 ml @ 100 mls/hr Q24H IVPB Last administered on 09/07/18 20:07; Admin Dose 100 MLS/HR; Start 09/07/18 at 20:00 Heparin Sodium (Porcine) (Heparin (5000 Units/1ml)) 5,000 unit BID SC Last administered on 09/08/18 11:04; Admin Dose 5,000 UNIT; Start 09/07/18 at 21:00 Metoprolol Tartrate (Lopressor) 50 mg BID PO Last administered on 6/19/19at 10:51; Admin Dose 50 MG; Start 09/08/18 at 09:00 Sodium Bicarbonate 75 meq/Dextrose 1,000 ml @ 50 mls/hr Q20H IV Last administered on 09/08/18at 10:53; Admin Dose 50 MLS/HR; Start 09/08/18 at 10:00 TIM MOSELEY NP Sep 08, 2018 13:59
--- NOTE | 2018-09-08 17:39 | CONS ---
Assessment/Plan Assessment/Plan Hospital Course (Demo Recall) 88-year-old male well-known to me from prior admissions. He presented to the emergency room complaining of fever, chills and abdominal pain. 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 He did have bilateral JJ stent placed and these were replaced about 4 weeks ago. Patient also had 2 episodes of vomiting and he describes his pain to be in the right lower quadrant radiating to his back CT scan of the abdomen and pelvis did show: 1. Left inguinal hernia, containing a short segment of the sigmoid colon without evidence of obstruction or strangulation. This is unchanged since prior study. 2. No gross evidence of bowel obstruction. Stool filled loops of large bowel suggestive of constipation. The appendix is within normal limits. 3. Bilateral hydroureteronephrosis, bilateral double-J ureteric stent in place. There is nonspecific bilateral perinephric fatty stranding. Degree of hydronephrosis is unchanged since prior study. 4. Atherosclerotic calcification of the aorta. Aortoiliac stent graft. 5. Thickening of the travis of the bladder, cannot exclude cystitis. 6. No evidence of free fluid or free air. No gross focal fluid collections. The urine culture on admission showed no growth so far. His hydronephrosis has not changed and the bilateral JJ stents are in good position. His lower abdominal pain could be related also to pelvic fibrosis which is causing encasement of the ureters and other pelvic structures. From a urological standpoint we will continue the antibiotic and see if the urine culture shows anything and will have to change the stents in about couple of months. Consultation Date/Type/Reason Admit Date/Time Sep 07, 2018 at 13:43 Date of Consultation: Sep 08, 2018 Type of Consult Urology Reason for Consultation Bilateral hydronephrosis and urinary tract infection Requesting Provider: LORENZO GARCIA DO Date/Time of Note DATE: 09/08/18 TIME: 17:21 Hx of Present Illness 88-year-old male well-known to me from prior admissions. He presented to the emergency room complaining of fever, chills and abdominal pain. 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 He did have bilateral JJ stent placed a nd these were replaced about 4 weeks ago. Patient also had 2 episodes of vomiting and he describes his pain to be in the right lower quadrant radiating to his back Constitutional: chills (Prior to admission), febrile (Prior to admission) Eyes: no complaints ENT: no complaints Respiratory: no complaints; No shortness of breath Cardiovascular: No chest pain Gastrointestinal: pain (Right lower quadrant) Genitourinary: dysuria Musculoskeletal: no complaints Skin: no complaints Neurologic: no complaints Endocrine: no complaints Lymphatic: no complaints Psychological: no complaints Immunologic: no complaints Past Medical History Medical History: coronary artery disease, high cholesterol, hypertension, renal disease (Chronic stage IV), other (Osteoporosis and peripheral vascular disease) Home Meds Reported Medications Allopurinol* (Allopurinol*) 100 Mg Tablet, 100 MG PO DAILY, TAB 09/07/18 Amlodipine Besylate* (Norvasc*) 5 Mg Tablet, 5 MG PO DAILY, TAB 09/07/18 Aspirin* (Aspirin* EC) 81 Mg Tablet.dr, 81 MG PO DAILY, TAB 09/07/18 Tamsulosin Hcl* (Flomax*) 0.4 Mg Cap.er.24h, 0.4 MG PO DAILY, CAP 09/07/18 Metoprolol Tartrate* (Lopressor*) 25 Mg Tab, 25 MG PO BID, #60 TAB 09/07/18 Calcium Carbonate/Vitamin D3 (OYSTER SHELL 500 MG + VIT D TB) 1 Each Tablet, 1 EACH PO DAILY, TAB 09/07/18 Ferrous Sulfate* (Ferrous Sulfate*) 325 Mg Tabec, 650 MG PO DAILY, TAB 09/07/18 Megestrol Acetate* (Megestrol Acetate*) 40 Mg Tablet, 40 MG PO DAILY, TAB 09/07/18 Cyanocobalamin (Vitamin B-12) (Vitamin B-12) 1,000 Mcg Capsule, 1000 MCG PO DAILY, CAP 09/07/18 Icosapent Ethyl (VASCEPA) 1 Gm Capsule, 1 GM PO DAILY, CAP 09/07/18 Discontinued Reported Medications Icosapent Ethyl (VASCEPA) 1 Gm Capsule, 2 GM PO BID, CAP 01/11/18 Megestrol Acetate* (Megestrol Acetate*) 40 Mg Tablet, 40 MG PO DAILY, TAB 01/11/18 Allopurinol* (Allopurinol*) 100 Mg Tablet, 100 MG PO DAILY, TAB 10/22/18 Amlodipine Besylate* (Norvasc*) 5 Mg Tablet, 5 MG PO DAILY, TAB 01/11/18 Ferrous Sulfate* (Ferrous Sulfate*) 325 Mg Tabec, 325 MG PO BID, TAB 01/11/18 Calcium Carbonate/Vitamin D3 (OYSTER SHELL 500 MG + VIT D TB) 1 Each Tablet, 1 EACH PO BID, TAB 01/11/18 Tamsulosin Hcl* (Tamsulosin Hcl*) 0.4 Mg Cap.er.24h, 0.4 MG PO HS, CAP 01/11/18 Aspirin (Low Dose Aspirin) 81 Mg Tablet.dr, 81 MG PO DAILY, #30 TAB 01/11/18 Medications Current Medications Allopurinol (Zyloprim) 100 mg DAILY PO Last administered on 09/08/18 10:51; Admin Dose 100 MG; Start 09/08/18 at 09:00 Aspirin (Halfprin) 81 mg DAILY PO Last administered on 09/08/18 10:50; Admin Dose 81 MG; Start 09/08/18 at 09:00 Calcium/Vitamin D (Oyster Shell/ Vit-D (500/200)) 1 tab DAILY PO Last administered on 09/08/18 10:50; Admin Dose 1 TAB; Start 09/08/18 at 09:00 Ferrous Sulfate (Ferrous Sulfate (Ec)) 650 mg DAILY PO Last administered on 09/08/18 10:51; Admin Dose 650 MG; Start 09/08/18 at 09:00 Megestrol Acetate (Megace) 40 mg DAILY PO Last administered on 09/08/18 10:51; Admin Dose 40 MG; Start 09/08/18 at 09:00 Tamsulosin HCl (Flomax) 0.4 mg DAILY@2100 PO ; Start 09/08/18 at 21:00 Ceftriaxone Sodium 50 ml @ 100 mls/hr Q24H IVPB Last administered on 09/07/18 20:07; Admin Dose 100 MLS/HR; Start 09/07/18 at 20:00 Heparin Sodium (Porcine) (Heparin (5000 Units/1ml)) 5,000 unit BID SC Last administered on 09/08/18 11:04; Admin Dose 5,000 UNIT; Start 09/07/18 at 21:00 Metoprolol Tartrate (Lopressor) 50 mg BID PO Last administered on 09/08/18 10:51; Admin Dose 50 MG; Start 09/08/18 at 09:00 Sodium Bicarbonate 75 meq/Dextrose 1,000 ml @ 50 mls/hr Q20H IV Last administered on 09/08/18at 10:53; Admin Dose 50 MLS/HR; Start 09/08/18 at 10:00 Allergies: Coded Allergies: No Known Allergy (Unverified , 09/07/18) Past Surgical History Past Surgical Hx: other (Status post PCI, status post aortofemoral bypass, status post bilateral ureteral stent placement.) Social History Alcohol Use: none Smoking Status: Former smoker Drug Use: none Exam/Review of Systems Exam Vitals Vital Signs Date Temp Pulse Resp B/P (MAP) Pulse Ox O2 O2 Flow FiO2 Time Delivery Rate 09/08/18 93 16:00 09/08/18 98.5 16 150/69 96 15:38 (96) 09/08/18 Room Air 03:35 Intake and Output 09/07/18 09/07/18 09/08/18 1515:00 23:00 07:00 IntakeIntake Total 50 ml 690 ml OutputOutput Total 700 ml BalanceBalance 50 ml -10 ml Constitutional: alert, oriented Psych: no complaints Head: normocephalic Eyes: nl conjunctiva ENMT: nl external ears & nose Neck: supple Respiratory: normal air movement; No wheezing Cardiovascular: No jugular venous distention (JVD) Gastrointestinal: tender (Right lower quadrant) Genitourinary - Male: nl penis, nl scrotum; No CVA tenderness Musculoskeletal: nl extremities to inspection Extremities: No calf tenderness Neurological: nl mental status Skin: nl turgor Results Result Diagram: 09/08/18 0559 09/08/18 0559 Results 24hrs Laboratory Tests Test 09/08/18 05:59 White Blood Count 11.2 H Red Blood Count 3.10 L Hemoglobin 9.1 L Hematocrit 28.3 L Mean Corpuscular Volume 91.3 Mean Corpuscular Hemoglobin 29.4 Mean Corpuscular Hemoglobin Concent 32.2 Red Cell Distribution Width 15.5 H Platelet Count 154 Mean Platelet Volume 11.5 H Immature Granulocytes % 0.400 Neutrophils % 49.7 Lymphocytes % 40.9 Monocytes % 6.4 Eosinophils % 2.2 Basophils % 0.4 Nucleated Red Blood Cells % 0.0 Immature Granulocytes # 0.040 H Neutrophils # 5.5 Lymphocytes # 4.6 H Monocytes # 0.7 Eosinophils # 0.3 Basophils # 0.1 Nucleated Red Blood Cells # 0.0 Sodium Level 145 H Potassium Level 5.3 H Chloride Level 119 H Carbon Dioxide Level 18 L Anion Gap 8 Blood Urea Nitrogen 41 H Creatinine 3.32 H Est Glomerular Filtrat Rate mL/min Glucose Level 100 # Calcium Level 8.5 Phosphorus Level 3.7 Magnesium Level 1.[address] scan of the abdomen and pelvis: 1. Left inguinal hernia, containing a short segment of the sigmoid colon without evidence of obstruction or strangulation. This is unchanged since prior study. 2. No gross evidence of bowel obstruction. Stool filled loops of large bowel suggestive of constipation. The appendix is within normal limits. 3. Bilateral hydroureteronephrosis, bilateral double-J ureteric stent in place. There is nonspecific bilateral perinephric fatty stranding. Degree of hydronephrosis is unchanged since prior study. 4. Atherosclerotic calcification of the aorta. Aortoiliac stent graft. 5. Thickening of the travis of the bladder, cannot exclude cystitis. 6. No evidence of free fluid or free air. No gross focal fluid collections. Medications Medication Current Medications Allopurinol (Zyloprim) 100 mg DAILY PO Last administered on 09/08/18at 10:51; Admin Dose 100 MG; Start 09/08/18 at 09:00 Aspirin (Halfprin) 81 mg DAILY PO Last administered on 09/08/18at 10:50; Admin Dose 81 MG; Start 09/08/18 at 09:00 Calcium/Vitamin D (Oyster Shell/ Vit-D (500/200)) 1 tab DAILY PO Last administered on 09/08/18 10:50; Admin Dose 1 TAB; Start 09/08/18 at 09:00 Ferrous Sulfate (Ferrous Sulfate (Ec)) 650 mg DAILY PO Last administered on 09/08/18 10:51; Admin Dose 650 MG; Start 09/08/18 at 09:00 Megestrol Acetate (Megace) 40 mg DAILY PO Last administered on 09/08/18at 10:51; Admin Dose 40 MG; Start 09/08/18 at 09:00 Tamsulosin HCl (Flomax) 0.4 mg DAILY@2100 PO ; Start 09/08/18 at 21:00 Ceftriaxone Sodium 50 ml @ 100 mls/hr Q24H IVPB Last administered on 09/07/18 20:07; Admin Dose 100 MLS/HR; Start 09/07/18 at 20:00 Heparin Sodium (Porcine) (Heparin (5000 Units/1ml)) 5,000 unit BID SC Last administered on 09/08/18 11:04; Admin Dose 5,000 UNIT; Start 09/07/18 at 21:00 Metoprolol Tartrate (Lopressor) 50 mg BID PO Last administered on 09/08/18 10:51; Admin Dose 50 MG; Start 09/08/18 at 09:00 Sodium Bicarbonate 75 meq/Dextrose 1,000 ml @ 50 mls/hr Q20H IV Last administered on 09/08/18 10:53; Admin Dose 50 MLS/HR; Start 09/08/18 at 10:00 REGGIE RESENDIZ MD Sep 08, 2018 17:32
[2018-09-08] MEDS: TAMSULOSIN (SR) 0.4 MG CAP PO SCH (20:33)
[2018-09-08] MEDS: CEFTRIAXONE 1 GM/NS 50 ML IVPB SCH (20:33)
[2018-09-09] VITALS (12 sets, daily range): BP systolic 133–140; BP diastolic 60–77; PULSE 72–112; RESP 16–18
[2018-09-09] MEDS: SODIUM BICARBONATE IV SCH ×2 (06:00→16:26)
[2018-09-09] MEDS: DEXTROSE 5% IV SCH ×2 (06:00→16:26)
--- NOTE | 2018-09-09 08:19 | RADRPT ---
Echocardiogram Report Patient Name: KALYANI REVELESPatient ID: [id number] : 1930 (88y 2m)Study Date: 09/08/2018 7:45:51 AM Gender: MAccession #: [id number] Tech: Ángela Mccauley RDCS Location: [id number] Ref.Physician: BRONSON ROTHMAN Height(Cm): BSA: Weight(Kg): Quality: AdequateOrder Physician: BRONSON ROTHMAN Account #: Procedures: Echocardiographic Report: Transthoracic echocardiogram with complete 2D, M-Mode, and doppler examination. Indications: Tachycardia, Arrhythmia. Measurements: 2D/M Mode Doppler Measurement Value Normal Range Measurement Value Normal Range LVIDd 2D 4.0 [ 4.2 - 5.8 ] cm AV Peak Walter 1.1 [ 100.0 - 170.0 ] cm/sec LVIDs 2D 2.1 [ 2.5 - 4.0 ] cm AV Peak PG 5.0 [ 2.0 - 9.0 ] mmHg LVPWd 2D 1.0 [ 0.6 - 1.0 ] cm LVOT Peak Walter 0.7 [ 70.0 - 110.0 ] cm/sec IVSd 2D 1.0 [ 0.6 - 1.0 ] cm LVOT Peak PG 2.0 [ 2.0 - 6.0 ] mmHg AoR Diam 2D 2.9 [ 2.6 - 3.4 ] cm MV E Peak Walter 0.7 [ 60.0 - 130.0 ] cm/sec EDV 2D 67.9 [ 62.0 - 150.0 ] ml MV A Peak Walter 0.9 [ 100.0 - 120.0 ] cm/sec ESV 2D 13.7 [ 21.0 - 61.0 ] ml MV E/A 0.8 [ 0.8 - 1.5 ] ratio EF 2D 79.8 [ 52.0 - 72.0 ] percent MV Decel Time 158 [ 104 - 258 ] msec LA Dimen 2D 2.6 [ 3.0 - 4.0 ] cm Lat E` Walter 0.1 [ 10.0 - 15.0 ] cm/sec Lateral E/E` 8.7 [ 1.0 - 2.0 ] ratio MV E/A 0.8 [ 0.8 - 1.5 ] ratio TR Peak Walter 2.5 [ 100.0 - 280.0 ] cm/sec TR Peak PG 25.0 mmHg RVSP 35.0 [ 10.0 - 36.0 ] mmHg RA Pressure 10.0 mmHg Findings: Left Ventricle: Normal left ventricular cavity size. Normal left ventricular wall thickness. Mild global left ventricular systolic dysfunction. Ejection fraction is visually estimated at 45 %. Abnormal Diastolic Function. Right Ventricle: Normal right ventricular size. Normal right ventricular systolic function. Left Atrium: The left atrium is normal in size. Right Atrium: The right atrium is normal in size. Mitral Valve: Mitral valve leaflets appear mildly thickened. Mild mitral annular calcification. Mild mitral valve regurgitation. Aortic Valve: Normal appearance of the aortic valve. No significant aortic stenosis or insufficiency. Tricuspid Valve: Normal appearance of the tricuspid valve. The estimated Peak RVSP is 35 mmHg. There is trace tricuspid regurgitation. Pulmonic Valve: Pulmonic valve not well visualized. Pericardium: Normal pericardium with no significant pericardial effusion. Aorta: Normal aortic root. IVC: Dilated IVC with respiratory collapse consistent with elevated right atrial pressure. Conclusions: Normal left ventricular cavity size. Normal left ventricular wall thickness. Mild global left ventricular systolic dysfunction. Ejection fraction is visually estimated at 45 %. Abnormal Diastolic Function. The left atrium is normal in size. Mitral valve leaflets appear mildly thickened. Mild mitral annular calcification. Mild mitral valve regurgitation. Normal appearance of the aortic valve. No significant aortic stenosis or insufficiency. Normal appearance of the tricuspid valve. The estimated Peak RVSP is 35 mmHg. There is trace tricuspid regurgitation. Electronically Signed By: Bronson Rothman 2018-09-09 08:18:36 PDT
--- NOTE | 2018-09-09 08:23 | CONS ---
Consult Date/Type/Reason Admit Date/Time Sep 07, 2018 at 13:43 Initial Consult Date 09/08/18 Type of Consultation: cv Requesting Provider: LORENZO KAMARA DO Date/Time of Note DATE: 09/09/18 TIME: 08:19 Subjective Cardiology follow-up progress note Subjective: Case discussed with staff and family. Telemetry was reviewed. Patient has remained in sinus rhythm but has had very frequent PACs. Probably intermittently she is very short runs of A. fib as well Patient denies any chest pain or pressure or palpitation to me. objective: General: no acute distress HEENT: NC/AT. pupils are equal. round. NECK: NO JVD. no stridor. CV: Tachycardic. systolic murmur; no gallop or rubs. PULM: no wheezing or rhonchi. GI: SOFT, no tenderness, ND, no rebound or guarding Extremity: trace B/L LE edema. no clubbing. neuro: awake and alert, OX2. Psych: calm and pleasant rectal: deferred : normal EKG was presented to sinus rhythm with frequent PACs Review of the old chart showed 2018 echocardiogram which was personally reviewed and showed normal ejection fraction about 55% Echocardiogram done September 08, 2018 which was personally reviewed shows: Ejection fraction about 45% now but TDS study Objective Vitals Vital Signs Date Temp Pulse Resp B/P (MAP) Pulse Ox O2 O2 Flow FiO2 Time Delivery Rate 09/09/18 98.6 108 18 133/77 93 07:17 (95) 09/09/18 Room Air 04:04 Intake and Output 09/08/18 09/08/18 09/09/18 1515:00 23:00 07:00 IntakeIntake Total 650 ml 550 ml OutputOutput Total 150 ml 370 ml 600 ml BalanceBalance -150 ml 280 ml -50 ml Results/Medications Result Diagram: 09/09/1852209/09/18 0523 Results 24 hrs Laboratory Tests Test 09/09/18 05:23 White Blood Count 9.1 Red Blood Count 3.13 L Hemoglobin 9.0 L Hematocrit 27.9 L Mean Corpuscular Volume 89.1 Mean Corpuscular Hemoglobin 28.8 L Mean Corpuscular Hemoglobin Concent 32.3 Red Cell Distribution Width 15.4 H Platelet Count 148 Mean Platelet Volume 11.6 H Immature Granulocytes % 0.200 Neutrophils % 45.6 Lymphocytes % 43.0 Monocytes % 6.2 Eosinophils % 4.5 Basophils % 0.5 Nucleated Red Blood Cells % 0.0 Immature Granulocytes # 0.020 Neutrophils # 4.2 Lymphocytes # 3.9 H Monocytes # 0.6 Eosinophils # 0.4 Basophils # 0.1 Nucleated Red Blood Cells # 0.0 Sodium Level 143 Potassium Level 4.3 Chloride Level 115 H Carbon Dioxide Level 16 L Anion Gap 12 Blood Urea Nitrogen 37 H Creatinine 3.15 H Est Glomerular Filtrat Rate mL/min Glucose Level 95 Calcium Level 8.3 L Phosphorus Level 3.3 Magnesium Level 1.8 Home Meds Reported Medications Allopurinol* (Allopurinol*) 100 Mg Tablet, 100 MG PO DAILY, TAB 09/07/18 Amlodipine Besylate* (Norvasc*) 5 Mg Tablet, 5 MG PO DAILY, TAB 09/07/18 Aspirin* (Aspirin* EC) 81 Mg Tablet.dr, 81 MG PO DAILY, TAB 09/07/18 Tamsulosin Hcl* (Flomax*) 0.4 Mg Cap.er.24h, 0.4 MG PO DAILY, CAP 09/07/18 Metoprolol Tartrate* (Lopressor*) 25 Mg Tab, 25 MG PO BID, #60 TAB 09/07/18 Calcium Carbonate/Vitamin D3 (OYSTER SHELL 500 MG + VIT D TB) 1 Each Tablet, 1 EACH PO DAILY, TAB 09/07/18 Ferrous Sulfate* (Ferrous Sulfate*) 325 Mg Tabec, 650 MG PO DAILY, TAB 09/07/18 Megestrol Acetate* (Megestrol Acetate*) 40 Mg Tablet, 40 MG PO DAILY, TAB 09/07/18 Cyanocobalamin (Vitamin B-12) (Vitamin B-12) 1,000 Mcg Capsule, 1000 MCG PO DAILY, CAP 09/07/18 Icosapent Ethyl (VASCEPA) 1 Gm Capsule, 1 GM PO DAILY, CAP 09/07/18 Discontinued Reported Medications Icosapent Ethyl (VASCEPA) 1 Gm Capsule, 2 GM PO BID, CAP 01/11/18 Megestrol Acetate* (Megestrol Acetate*) 40 Mg Tablet, 40 MG PO DAILY, TAB 01/11/18 Allopurinol* (Allopurinol*) 100 Mg Tablet, 100 MG PO DAILY, TAB 01/11/18 Amlodipine Besylate* (Norvasc*) 5 Mg Tablet, 5 MG PO DAILY, TAB 01/11/18 Ferrous Sulfate* (Ferrous Sulfate*) 325 Mg Tabec, 325 MG PO BID, TAB 01/11/18 Calcium Carbonate/Vitamin D3 (OYSTER SHELL 500 MG + VIT D TB) 1 Each Tablet, 1 EACH PO BID, TAB 01/11/18 Tamsulosin Hcl* (Tamsulosin Hcl*) 0.4 Mg Cap.er.24h, 0.4 MG PO HS, CAP 01/11/18 Aspirin (Low Dose Aspirin) 81 Mg Tablet.dr, 81 MG PO DAILY, #30 TAB 01/11/18 Medications Current Medications Allopurinol (Zyloprim) 100 mg DAILY PO Last administered on 09/08/18 10:51; Admin Dose 100 MG; Start 09/08/18 at 09:00 Aspirin (Halfprin) 81 mg DAILY PO Last administered on 09/08/18 10:50; Admin Dose 81 MG; Start 09/08/18 at 09:00 Calcium/Vitamin D (Oyster Shell/ Vit-D (500/200)) 1 tab DAILY PO Last administered on 09/08/18 10:50; Admin Dose 1 TAB; Start 09/08/18 at 09:00 Ferrous Sulfate (Ferrous Sulfate (Ec)) 650 mg DAILY PO Last administered on 09/08/18 10:51; Admin Dose 650 MG; Start 09/08/18 at 09:00 Megestrol Acetate (Megace) 40 mg DAILY PO Last administered on 09/08/18 10:51; Admin Dose 40 MG; Start 09/08/18 at 09:00 Tamsulosin HCl (Flomax) 0.4 mg DAILY@2100 PO Last administered on 09/08/18 20:33; Admin Dose 0.4 MG; Start 09/08/18 at 21:00 Ceftriaxone Sodium 50 ml @ 100 mls/hr Q24H IVPB Last administered on 09/08/18 20:33; Admin Dose 100 MLS/HR; Start 09/07/18 at 20:00 Heparin Sodium (Porcine) (Heparin (5000 Units/1ml)) 5,000 unit BID SC Last administered on 09/08/18 20:46; Admin Dose 5,000 UNIT; Start 09/07/18 at 21:00 Metoprolol Tartrate (Lopressor) 50 mg BID PO Last administered on 09/08/18at 20:35; Admin Dose 50 MG; Start 09/08/18 at 09:00 Sodium Bicarbonate 75 meq/Dextrose 1,000 ml @ 50 mls/hr Q20H IV Last administered on 09/08/18at 10:53; Admin Dose 50 MLS/HR; Start 09/08/18 at 10:00 Assessment/Plan Hospital Course (Demo Recall) 1. Tachycardia: Appears to be sinus with frequent PACs with possibly very short runs of atrial fibrillation 2. Coronary artery disease with history of non-ST elevation myocardial infarction in 2012, currently with no more angina 3. History of PCI of his right coronary artery in 2012 4. Acute renal failure 5. Urinary obstruction: Status post cystoscopy on 01/12/2018 6. Hyperkalemia 7. Dyslipidemia 8. Peripheral vascular disease 9. Hypertension 10. Anemia 11. History of pulmonary nodule Recommendations: I will change her metoprolol to Toprol-XL Antibiotic management as per IM/and possibly ID product marketing consultant Renal work-up and treatment as per Dr. Kamara Not on any NARINDER inhibitor or ARB due to his renal failure I will start him on a statin given his history of coronary arteries and PCI. We will check a lipid panel tomorrow Thank you for his referral. We will continue to follow along with you BRONSON KISER MD [facility] BRONSON KISER MD Sep 09, 2018 08:23
[2018-09-09] MEDS: ASPIRIN (EC) 81 MG TAB PO SCH (09:00)
[2018-09-09] MEDS: ALLOPURINOL 100 MG TAB PO SCH (09:00)
[2018-09-09] MEDS: FERROUS SULFATE (EC) 325 MG TAB PO SCH (09:00)
[2018-09-09] MEDS: MEGESTROL 40 MG TAB PO SCH (09:00)
[2018-09-09] MEDS: METOPROLOL (XL) 50 MG TAB PO SCH ×2 (09:01→20:31)
[2018-09-09] MEDS: CALCIUM/VITAMIN D (500/200) TAB PO SCH (09:01)
[2018-09-09] MEDS: HEPARIN 5,000 UNIT/1 ML VIAL SC SCH ×2 (09:24→20:45)
--- NOTE | 2018-09-09 11:18 | PN ---
DATE: 09/09/2018 SUBJECTIVE: The patient is stable, no events overnight. No fevers, chills, nausea, vomiting. OBJECTIVE: VITAL SIGNS: Blood pressure is 132/77, respiration 18, pulse 108, temperature 98.6. HEENT: Head is normocephalic. NECK: Supple. HEART: Regular rate. LUNGS: Show diminished breath sounds at the base. ABDOMEN: Soft, nontender to palpation without rebound or guarding. EXTREMITIES: Negative for clubbing, cyanosis, no edema. DERMATOLOGIC: No rashes. MUSCULOSKELETAL: No joint effusion. NEUROLOGIC: No change in exam. MEDICATIONS: The patient's medications have been reviewed. LABORATORY DATA: Has been reviewed. IMAGING STUDIES: Have been reviewed. ASSESSMENT AND PLAN: 1. Sepsis secondary to UTI, pyelonephritis. Continue current antibiotic regimen. Follow up culture s. Follow up with infectious disease, follow up with urology. T 2. 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 Etiology of acute kidney injury is secondary to hemodynamics. The patient's renal funct ion is improving with gentle IV hydration. Continue current treatment plan. 3. Chronic bilateral hydroureteronephrosis. The patient is status post double-J stent placement. C ontinue to monitor. Follow up with urology. 4. Metabolic acidosis secondary to acute kidney injury and CKD. Continue bicarbonate therapy. 5. Mild hyperkalemia, resolved. 6. Anemia. Monitor hemoglobin and hematocrit levels. 7. Hypertension. Continue current blood pressure regimen. 8. Arrhythmia with frequent PVCs. The patient's medications were adjusted. Follow up with cardiolo gy. 9. History of coronary artery disease. Continue medical management. 10. History of peripheral vascular disease status post bypass. 11. Hypertension. Continue current blood pressure regimen. 12. Mineral bone disorder, monitor calcium and phosphorus levels. 13. Gastrointestinal and deep venous thrombosis prophylaxis. DISPOSITION: Anticipate discharge home in next 24 hours. Dictated By: LORENZO FINK/VINICIO Conf#: [id number] DID#: [id number]
--- NOTE | 2018-09-09 14:45 | CONS ---
Assessment/Plan Assessment/Plan Hospital Course (Demo Recall) No acute changes overnight patient is awake looks comfortable Urinalysis on admission was positive, urine culture negative CT of the abdomen and pelvis showed no gross evidence of bowel obstruction bilateral hydronephrosis, bilateral double-J ureteric stent in place nonspecific bilateral perinephric fatty stranding. Degree of hydronephrosis is unchanged since the prior study. Please see full report in the chart Antimicrobials: Patient is on Rocephin Physical examination: Well-developed fragile elderly man who is awake in no distress head atraumatic normocephalic neck is supple chest rise symmetrical breath sounds diminished bases heart S1-S2 abdomen soft bowel sounds present Assessment: 1. Systemic inflammatory response syndrome 2. Acute pyelonephritis 3. Chronic kidney disease 4. History of bilateral JJ stent placements 5. Peripheral arterial disease, history of bypass graft Plan: Patient remains stable, wbc wnl, urology rec-s noted, ok dc on oral Amoxic illin for 5 more days Consultation Date/Type/Reason Admit Date/Time Sep 07, 2018 at 13:43 Initial Consult Date 09/08/18 Type of Consult id Requesting Provider: LORENZO GARCIA DO Date/Time of Note DATE: 09/09/18 TIME: 14:44 Exam/Review of Systems Exam Vitals Vital Signs Date Temp Pulse Resp B/P (MAP) Pulse Ox O2 O2 Flow FiO2 Time Delivery Rate 09/09/18 96 12:00 09/09/18 98.7 16 140/61 96 11:07 (87) 09/09/18 Room Air 04:04 Intake and Output 09/08/18 09/08/18 09/09/18 1515:00 23:00 07:00 IntakeIntake Total 650 ml 550 ml OutputOutput Total 150 ml 370 ml 600 ml BalanceBalance -150 ml 280 ml -50 ml Results Result Diagram: 09/09/18 0523 09/09/18 0523 Results 24hrs Laboratory Tests Test 09/09/18 05:23 White Blood Count 9.1 Red Blood Count 3.13 L Hemoglobin 9.0 L Hematocrit 27.9 L Mean Corpuscular Volume 89.1 Mean Corpuscular Hemoglobin 28.8 L Mean Corpuscular Hemoglobin Concent 32.3 Red Cell Distribution Width 15.4 H Platelet Count 148 Mean Platelet Volume 11.6 H Immature Granulocytes % 0.200 Neutrophils % 45.6 Lymphocytes % 43.0 Monocytes % 6.2 Eosinophils % 4.5 Basophils % 0.5 Nucleated Red Blood Cells % 0.0 Immature Granulocytes # 0.020 Neutrophils # 4.2 Lymphocytes # 3.9 H Monocytes # 0.6 Eosinophils # 0.4 Basophils # 0.1 Nucleated Red Blood Cells # 0.0 Sodium Level 143 Potassium Level 4.3 Chloride Level 115 H Carbon Dioxide Level 16 L Anion Gap 12 Blood Urea Nitrogen 37 H Creatinine 3.15 H Est Glomerular Filtrat Rate mL/min Glucose Level 95 Calcium Level 8.3 L Phosphorus Level 3.3 Magnesium Level 1.8 Triglycerides Level 90 Cholesterol Level 95 L LDL Cholesterol, Calculated 56 HDL Cholesterol 21 L Cholesterol/HDL Ratio 4.5 Medications Medication Current Medications Allopurinol (Zyloprim) 100 mg DAILY PO Last administered on 09/09/18 09:00; Admin Dose 100 MG; Start 09/08/18 at 09:00 Aspirin (Halfprin) 81 mg DAILY PO Last administered on 09/09/18 09:00; Admin Dose 81 MG; Start 09/08/18 at 09:00 Calcium/Vitamin D (Oyster Shell/ Vit-D (500/200)) 1 tab DAILY PO Last administered on 09/09/18 09:01; Admin Dose 1 TAB; Start 09/08/18 at 09:00 Ferrous Sulfate (Ferrous Sulfate (Ec)) 650 mg DAILY PO Last administered on 09/09/18 09:00; Admin Dose 650 MG; Start 09/08/18 at 09:00 Megestrol Acetate (Megace) 40 mg DAILY PO Last administered on 09/09/18 09:00; Admin Dose 40 MG; Start 09/08/18 at 09:00 Tamsulosin HCl (Flomax) 0.4 mg DAILY@2100 PO Last administered on 09/08/18 20:33; Admin Dose 0.4 MG; Start 09/08/18 at 21:00 Ceftriaxone Sodium 50 ml @ 100 mls/hr Q24H IVPB Last administered on 09/08/18 20:33; Admin Dose 100 MLS/HR; Start 09/07/18 at 20:00 Heparin Sodium (Porcine) (Heparin (5000 Units/1ml)) 5,000 unit BID SC Last administered on 09/09/18 09:24; Admin Dose 5,000 UNIT; Start 09/07/18 at 21:00 Sodium Bicarbonate 75 meq/Dextrose 1,000 ml @ 50 mls/hr Q20H IV Last administered on 09/08/18at 10:53; Admin Dose 50 MLS/HR; Start 09/08/18 at 10:00 Metoprolol Succinate (Toprol Xl) 50 mg BID PO Last administered on 09/09/18at 09:01; Admin Dose 50 MG; Start 09/09/18 at 09:00 Atorvastatin Calcium (Lipitor) 20 mg HS PO ; Start 09/09/18 at 21:00 TIM MOSELEY NP Sep 09, 2018 14:45
--- NOTE | 2018-09-09 18:16 | CONS ---
Consult Date/Type/Reason Admit Date/Time Sep 07, 2018 at 13:43 Initial Consult Date 09/08/18 Type of Consultation: Urology Reason for Consultation Bilateral hydronephrosis secondary to bilateral ureteral obstruction. Patient has bilateral JJ stents Requesting Provider: LORENZO GARCIA DO Date/Time of Note DATE: 09/09/18 TIME: 18:12 Subjective Patient is comfortable. His pelvic pain is less and he is voiding well Objective Vitals Vital Signs Date Temp Pulse Resp B/P (MAP) Pulse Ox O2 O2 Flow FiO2 Time Delivery Rate 09/09/18 88 16:00 09/09/18 98.3 16 138/60 93 15:24 (86) 09/09/18 Room Air 04:04 Intake and Output 09/08/18 09/08/18 09/09/18 1515:00 23:00 07:00 IntakeIntake Total 650 ml 550 ml OutputOutput Total 150 ml 370 ml 600 ml BalanceBalance -150 ml 280 ml -50 ml Exam Abdomen is soft. His urine is clear. The creatinine is now 3.15 Urine culture no growth after 48 hours Results/Medications Result Diagram: 09/09/18 0523 09/09/18 0523 Results 24 hrs Laboratory Tests Test 09/09/18 05:23 White Blood Count 9.1 Red Blood Count 3.13 L Hemoglobin 9.0 L Hematocrit 27.9 L Mean Corpuscular Volume 89.1 Mean Corpuscular Hemoglobin 28.8 L Mean Corpuscular Hemoglobin Concent 32.3 Red Cell Distribution Width 15.4 H Platelet Count 148 Mean Platelet Volume 11.6 H Immature Granulocytes % 0.200 Neutrophils % 45.6 Lymphocytes % 43.0 Monocytes % 6.2 Eosinophils % 4.5 Basophils % 0.5 Nucleated Red Blood Cells % 0.0 Immature Granulocytes # 0.020 Neutrophils # 4.2 Lymphocytes # 3.9 H Monocytes # 0.6 Eosinophils # 0.4 Basophils # 0.1 Nucleated Red Blood Cells # 0.0 Sodium Level 143 Potassium Level 4.3 Chloride Level 115 H Carbon Dioxide Level 16 L Anion Gap 12 Blood Urea Nitrogen 37 H Creatinine 3.15 H Est Glomerular Filtrat Rate mL/min Glucose Level 95 Calcium Level 8.3 L Phosphorus Level 3.3 Magnesium Level 1.8 Triglycerides Level 90 Cholesterol Level 95 L LDL Cholesterol, Calculated 56 HDL Cholesterol 21 L Cholesterol/HDL Ratio 4.5 Home Meds Reported Medications Allopurinol* (Allopurinol*) 100 Mg Tablet, 100 MG PO DAILY, TAB 09/07/18 Amlodipine Besylate* (Norvasc*) 5 Mg Tablet, 5 MG PO DAILY, TAB 09/07/18 Aspirin* (Aspirin* EC) 81 Mg Tablet.dr, 81 MG PO DAILY, TAB 09/07/18 Tamsulosin Hcl* (Flomax*) 0.4 Mg Cap.er.24h, 0.4 MG PO DAILY, CAP 09/07/18 Metoprolol Tartrate* (Lopressor*) 25 Mg Tab, 25 MG PO BID, #60 TAB 09/07/18 Calcium Carbonate/Vitamin D3 (OYSTER SHELL 500 MG + VIT D TB) 1 Each Tablet, 1 EACH PO DAILY, TAB 09/07/18 Ferrous Sulfate* (Ferrous Sulfate*) 325 Mg Tabec, 650 MG PO DAILY, TAB 09/07/18 Megestrol Acetate* (Megestrol Acetate*) 40 Mg Tablet, 40 MG PO DAILY, TAB 09/07/18 Cyanocobalamin (Vitamin B-12) (Vitamin B-12) 1,000 Mcg Capsule, 1000 MCG PO DAILY, CAP 09/07/18 Icosapent Ethyl (VASCEPA) 1 Gm Capsule, 1 GM PO DAILY, CAP 09/07/18 Discontinued Reported Medications Icosapent Ethyl (VASCEPA) 1 Gm Capsule, 2 GM PO BID, CAP 01/11/18 Megestrol Acetate* (Megestrol Acetate*) 40 Mg Tablet, 40 MG PO DAILY, TAB 01/11/18 Allopurinol* (Allopurinol*) 100 Mg Tablet, 100 MG PO DAILY, TAB 01/11/18 Amlodipine Besylate* (Norvasc*) 5 Mg Tablet, 5 MG PO DAILY, TAB 01/11/18 Ferrous Sulfate* (Ferrous Sulfate*) 325 Mg Tabec, 325 MG PO BID, TAB 01/11/18 Calcium Carbonate/Vitamin D3 (OYSTER SHELL 500 MG + VIT D TB) 1 Each Tablet, 1 EACH PO BID, TAB 01/11/18 Tamsulosin Hcl* (Tamsulosin Hcl*) 0.4 Mg Cap.er.24h, 0.4 MG PO HS, CAP 01/11/18 Aspirin (Low Dose Aspirin) 81 Mg Tablet.dr, 81 MG PO DAILY, #30 TAB 01/11/18 Medications Current Medications Allopurinol (Zyloprim) 100 mg DAILY PO Last administered on 09/09/18 09:00; Admin Dose 100 MG; Start 09/08/18 at 09:00 Aspirin (Halfprin) 81 mg DAILY PO Last administered on 09/09/18 09:00; Admin Dose 81 MG; Start 09/08/18 at 09:00 Calcium/Vitamin D (Oyster Shell/ Vit-D (500/200)) 1 tab DAILY PO Last administered on 09/09/18 09:01; Admin Dose 1 TAB; Start 09/08/18 at 09:00 Ferrous Sulfate (Ferrous Sulfate (Ec)) 650 mg DAILY PO Last administered on 09/09/18 09:00; Admin Dose 650 MG; Start 09/08/18 at 09:00 Megestrol Acetate (Megace) 40 mg DAILY PO Last administered on 09/09/18 09:00; Admin Dose 40 MG; Start 09/08/18 at 09:00 Tamsulosin HCl (Flomax) 0.4 mg DAILY@2100 PO Last administered on 09/08/18 20:33; Admin Dose 0.4 MG; Start 09/08/18 at 21:00 Ceftriaxone Sodium 50 ml @ 100 mls/hr Q24H IVPB Last administered on 09/08/18 20:33; Admin Dose 100 MLS/HR; Start 09/07/18 at 20:00 Heparin Sodium (Porcine) (Heparin (5000 Units/1ml)) 5,000 unit BID SC Last administered on 09/09/18 09:24; Admin Dose 5,000 UNIT; Start 09/07/18 at 21:00 Sodium Bicarbonate 75 meq/Dextrose 1,000 ml @ 50 mls/hr Q20H IV Last administered on 09/09/18 16:26; Admin Dose 50 MLS/HR; Start 09/08/18 at 10:00 Metoprolol Succinate (Toprol Xl) 50 mg BID PO Last administered on 09/09/18 09:01; Admin Dose 50 MG; Start 09/09/18 at 09:00 Atorvastatin Calcium (Lipitor) 20 mg HS PO ; Start 09/09/18 at 21:00 Assessment/Plan Hospital Course (Demo Recall) 88-year-old male well-known to me from prior admissions. He presented to the e mergency room complaining of fever, chills and abdominal pain. 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 He did have bilateral JJ stent placed and these were replaced about 4 weeks ago. Patient also had 2 episodes of vomiting and he describes his pain to be in the right lower quadrant radiating to his back CT scan of the abdomen and pelvis did show: 1. Left inguinal hernia, containing a short segment of the sigmoid colon without evidence of obstruction or strangulation. This is unchanged since prior study. 2. No gross evidence of bowel obstruction. Stool filled loops of large bowel suggestive of constipation. The appendix is within normal limits. 3. Bilateral hydroureteronephrosis, bilateral double-J ureteric stent in place. There is nonspecific bilateral perinephric fatty stranding. Degree of h ydronephrosis is unchanged since prior study. 4. Atherosclerotic calcification of the aorta. Aortoiliac stent graft. 5. Thickening of the travis of the bladder, cannot exclude cystitis. 6. No evidence of free fluid or free air. No gross focal fluid collections. The urine culture on admission showed no growth in 48 hours. His hydronephrosis has not changed and the bilateral JJ stents are in good position. 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 I did talk to his daughters at bedside and discussed with them a consultation with Dr.Karim Thornton at [facility] for evaluation of possible urethrolysis. His daughter did write the name and the phone number and address so she could call and make an appointment REGGIE RESENDIZ MD Sep 09, 2018 18:16
[2018-09-09] MEDS: CEFTRIAXONE 1 GM/NS 50 ML IVPB SCH (20:29)
[2018-09-09] MEDS: TAMSULOSIN (SR) 0.4 MG CAP PO SCH (20:30)
[2018-09-09] MEDS ORDERED: ATORVASTATIN 20 MG TAB PO SCH (21:00)
[2018-09-10] VITALS (9 sets, daily range): BP systolic 134–147; BP diastolic 70–77; PULSE 78–152; RESP 16–18
[2018-09-10] MEDS: DEXTROSE 5% IV SCH (02:00)
[2018-09-10] MEDS: SODIUM BICARBONATE IV SCH (02:00)
--- NOTE | 2018-09-10 07:38 | CONS ---
Consult Date/Type/Reason Admit Date/Time Sep 07, 2018 at 13:43 Initial Consult Date 09/08/18 Type of Consultation: Urology Requesting Provider: LORENZO KAMARA DO Date/Time of Note DATE: 09/10/18 TIME: 07:35 Subjective Cardiology follow-up progress note Subjective: Case discussed with staff and family. Telemetry was reviewed. Patient has remained in sinus rhythm but has had very frequent PACs. with very short runs of A. fib as well Patient denies any chest pain or pressure or palpitation to me. d./w daughter objective: General: no acute distress HEENT: NC/AT. pupils are equal. round. NECK: NO JVD. no stridor. CV: Tachycardic. systolic murmur; no gallop or rubs. PULM: no wheezing or rhonchi. GI: SOFT, no tenderness, ND, no rebound or guarding Extremity: trace B/L LE edema. no clubbing. neuro: awake and alert, OX2. Psych: calm and pleasant rectal: deferred : normal EKG was presented to sinus rhythm with frequent PACs Review of the old chart showed 2018 echocardiogram which was personally reviewed and showed normal ejection fraction about 55% Echocardiogram done September 08, 2018 which was personally reviewed shows: Ejection fraction about 45% now but TDS study Objective Vitals Vital Signs Date Temp Pulse Resp B/P (MAP) Pulse Ox O2 O2 Flow FiO2 Time Delivery Rate 09/10/18 97.7 104 18 134/76 95 Room Air 07:28 (95) Intake and Output 09/09/18 09/09/18 09/10/18 1515:00 23:00 07:00 IntakeIntake Total 1650 ml OutputOutput Total 270 ml 1000 ml BalanceBalance 1380 ml -1000 ml Results/Medications Result Diagram: 09/09/18 0509/10/18 0527 Results 24 hrs Laboratory Tests Test 09/10/18 05:27 Sodium Level 142 Potassium Level 4.2 Chloride Level 111 H Carbon Dioxide Level 20 L Anion Gap 11 Blood Urea Nitrogen 33 H Creatinine 3.08 H Est Glomerular Filtrat Rate mL/min Glucose Level 101 Calcium Level 8.2 L Magnesium Level 1.8 Total Bilirubin 0.2 Direct Bilirubin 0.00 Indirect Bilirubin 0.2 Aspartate Amino Transf (AST/SGOT) 15 Alanine Aminotransferase (ALT/SGPT) 9 L Alkaline Phosphatase 49 Total Protein 6.0 L Albumin 3.0 L Globulin 3.00 Albumin/Globulin Ratio 1.00 Triglycerides Level 95 Cholesterol Level 98 L LDL Cholesterol, Calculated 58 HDL Cholesterol 21 L Cholesterol/HDL Ratio 4.6 Thyroid Stimulating Hormone (TSH) 7.840 H Free Thyroxine 1.40 Home Meds Reported Medications Allopurinol* (Allopurinol*) 100 Mg Tablet, 100 MG PO DAILY, TAB 09/07/18 Amlodipine Besylate* (Norvasc*) 5 Mg Tablet, 5 MG PO DAILY, TAB 09/07/18 Aspirin* (Aspirin* EC) 81 Mg Tablet.dr, 81 MG PO DAILY, TAB 09/07/18 Tamsulosin Hcl* (Flomax*) 0.4 Mg Cap.er.24h, 0.4 MG PO DAILY, CAP 09/07/18 Metoprolol Tartrate* (Lopressor*) 25 Mg Tab, 25 MG PO BID, #60 TAB 09/07/18 Calcium Carbonate/Vitamin D3 (OYSTER SHELL 500 MG + VIT D TB) 1 Each Tablet, 1 EACH PO DAILY, TAB 09/07/18 Ferrous Sulfate* (Ferrous Sulfate*) 325 Mg Tabec, 650 MG PO DAILY, TAB 09/07/18 Megestrol Acetate* (Megestrol Acetate*) 40 Mg Tablet, 40 MG PO DAILY, TAB 09/07/18 Cyanocobalamin (Vitamin B-12) (Vitamin B-12) 1,000 Mcg Capsule, 1000 MCG PO DAILY, CAP 09/07/18 Icosapent Ethyl (VASCEPA) 1 Gm Capsule, 1 GM PO DAILY, CAP 09/07/18 Discontinued Reported Medications Icosapent Ethyl (VASCEPA) 1 Gm Capsule, 2 GM PO BID, CAP 01/11/18 Megestrol Acetate* (Megestrol Acetate*) 40 Mg Tablet, 40 MG PO DAILY, TAB 01/11/18 Allopurinol* (Allopurinol*) 100 Mg Tablet, 100 MG PO DAILY, TAB 01/11/18 Amlodipine Besylate* (Norvasc*) 5 Mg Tablet, 5 MG PO DAILY, TAB 01/11/18 Ferrous Sulfate* (Ferrous Sulfate*) 325 Mg Tabec, 325 MG PO BID, TAB 01/11/18 Calcium Carbonate/Vitamin D3 (OYSTER SHELL 500 MG + VIT D TB) 1 Each Tablet, 1 EACH PO BID, TAB 01/11/18 Tamsulosin Hcl* (Tamsulosin Hcl*) 0.4 Mg Cap.er.24h, 0.4 MG PO HS, CAP 01/11/18 Aspirin (Low Dose Aspirin) 81 Mg Tablet.dr, 81 MG PO DAILY, #30 TAB 01/11/18 Medications Current Medications Allopurinol (Zyloprim) 100 mg DAILY PO Last administered on 09/09/18 09:00; Admin Dose 100 MG; Start 09/08/18 at 09:00 Aspirin (Halfprin) 81 mg DAILY PO Last administered on 09/09/18 09:00; Admin Dose 81 MG; Start 09/08/18 at 09:00 Calcium/Vitamin D (Oyster Shell/ Vit-D (500/200)) 1 tab DAILY PO Last administered on 09/09/18 09:01; Admin Dose 1 TAB; Start 09/08/18 at 09:00 Ferrous Sulfate (Ferrous Sulfate (Ec)) 650 mg DAILY PO Last administered on 09/09/18 09:00; Admin Dose 650 MG; Start 09/08/18 at 09:00 Megestrol Acetate (Megace) 40 mg DAILY PO Last administered on 09/09/18 09:00; Admin Dose 40 MG; Start 09/08/18 at 09:00 Tamsulosin HCl (Flomax) 0.4 mg DAILY@2100 PO Last administered on 09/09/18 20:30; Admin Dose 0.4 MG; Start 09/08/18 at 21:00 Ceftriaxone Sodium 50 ml @ 100 mls/hr Q24H IVPB Last administered on 09/09/18 20:29; Admin Dose 100 MLS/HR; Start 09/07/18 at 20:00 Heparin Sodium (Porcine) (Heparin (5000 Units/1ml)) 5,000 unit BID SC Last administered on 09/09/18 20:45; Admin Dose 5,000 UNIT; Start 09/07/18 at 21:00 Sodium Bicarbonate 75 meq/Dextrose 1,000 ml @ 50 mls/hr Q20H IV Last administered on 09/09/18 16:26; Admin Dose 50 MLS/HR; Start 09/08/18 at 10:00 Metoprolol Succinate (Toprol Xl) 50 mg BID PO Last administered on 09/09/18 20:31; Admin Dose 50 MG; Start 09/09/18 at 09:00 Atorvastatin Calcium (Lipitor) 20 mg HS PO Last administered on 09/09/18at 20:29; Admin Dose 20 MG; Start 09/09/18 at 21:00 Polyethylene Glycol (Miralax) 8.5 gm DAILY PO ; Start 09/10/18 at 09:00 Docusate Sodium (Colace) 100 mg BID PO ; Start 09/10/18 at 09:00 Assessment/Plan Hospital Course (Demo Recall) 1. Tachycardia: Appears to be sinus with frequent PACs with possibly very short runs of atrial fibrillation 2. Coronary artery disease with history of non-ST elevation myocardial infarction in 2012, currently with no more angina 3. History of PCI of his right coronary artery in 2012 4. Acute renal failure 5. Urinary obstruction: Status post cystoscopy on 01/12/2018 6. Hyperkalemia 7. Dyslipidemia 8. Peripheral vascular disease 9. Hypertension 10. Anemia 11. History of pulmonary nodule Recommendations: cont r metoprolo Toprol-XL will add multaq Antibiotic management as per IM/and possibly ID [facility] i[facility] consultant Renal work-up and treatment as per Dr. Kamara Not on any NARINDER inhibitor or ARB due to his renal failure cont statin given his history of coronary arteries and PCI. We will check a lipid panel tomorrow Thank you for his referral. We will continue to follow along with you BRONSON KISER MD [facility] BRONSON KISER MD Sep 10, 2018 07:38
[2018-09-10] MEDS ORDERED: DRONEDARONE HYDROCHLORIDE 400 MG TAB PO SCH (07:55)
[2018-09-10] MEDS ORDERED: POLYETHYLENE GLYCOL 17 GM PACKET PO SCH (09:00)
[2018-09-10] MEDS ORDERED: DOCUSATE SODIUM 100 MG CAP PO SCH (09:00)
[2018-09-10] MEDS: FERROUS SULFATE (EC) 325 MG TAB PO SCH (09:31)
[2018-09-10] MEDS: ASPIRIN (EC) 81 MG TAB PO SCH (09:31)
[2018-09-10] MEDS: CALCIUM/VITAMIN D (500/200) TAB PO SCH (09:32)
[2018-09-10] MEDS: MEGESTROL 40 MG TAB PO SCH (09:32)
[2018-09-10] MEDS: METOPROLOL (XL) 50 MG TAB PO SCH (09:32)
[2018-09-10] MEDS: ALLOPURINOL 100 MG TAB PO SCH (09:32)
[2018-09-10] MEDS: HEPARIN 5,000 UNIT/1 ML VIAL SC SCH (09:35)
--- NOTE | 2018-09-10 11:14 | CONS ---
Assessment/Plan Assessment/Plan Hospital Course (Demo Recall) No acute changes overnight patient is awake looks comfortable Urinalysis on admission was positive, urine culture negative CT of the abdomen and pelvis showed no gross evidence of bowel obstruction bilateral hydronephrosis, bilateral double-J ureteric stent in place nonspecific bilateral perinephric fatty stranding. Degree of hydronephrosis is unchanged since the prior study. Please see full report in the chart Antimicrobials: Patient is on Rocephin Physical examination: Well-developed fragile elderly man who is awake in no distress head atraumatic normocephalic neck is supple chest rise symmetrical breath sounds diminished bases heart S1-S2 abdomen soft bowel sounds present Assessment: 1. Systemic inflammatory response syndrome 2. Acute pyelonephritis 3. Chronic kidney disease 4. History of bilateral JJ stent placements 5. Peripheral arterial disease, history of bypass graft Plan: Patient remains stable, urology rec-s noted==> pt to f/u at [facility] with Dr Karissa miguel, ok dc on oral Amoxicillin for 4 more days Consultation Date/Type/Reason Admit Date/Time Sep 07, 2018 at 13:43 Initial Consult Date 09/08/18 Type of Consult id Requesting Provider: LORENZO GARCIA DO Date/Time of Note DATE: 09/10/18 TIME: 11:12 Exam/Review of Systems Exam Vitals Vital Signs Date Temp Pulse Resp B/P (MAP) Pulse Ox O2 O2 Flow FiO2 Time Delivery Rate 09/10/18 98.0 78 18 147/77 97 Room Air 11:04 (100) Intake and Output 09/09/18 09/09/18 09/10/18 1515:00 23:00 07:00 IntakeIntake Total 1650 ml OutputOutput Total 270 ml 1000 ml BalanceBalance 1380 ml -1000 ml Results Result Diagram: 09/09/18 0523 09/10/18 0527 Results 24hrs Laboratory Tests Test 09/10/18 05:27 Sodium Level 142 Potassium Level 4.2 Chloride Level 111 H Carbon Dioxide Level 20 L Anion Gap 11 Blood Urea Nitrogen 33 H Creatinine 3.08 H Est Glomerular Filtrat Rate mL/min Glucose Level 101 Calcium Level 8.2 L Magnesium Level 1.8 Total Bilirubin 0.2 Direct Bilirubin 0.00 Indirect Bilirubin 0.2 Aspartate Amino Transf (AST/SGOT) 15 Alanine Aminotransferase (ALT/SGPT) 9 L Alkaline Phosphatase 49 Total Protein 6.0 L Albumin 3.0 L Globulin 3.00 Albumin/Globulin Ratio 1.00 Triglycerides Level 95 Cholesterol Level 98 L LDL Cholesterol, Calculated 58 HDL Cholesterol 21 L Cholesterol/HDL Ratio 4.6 Thyroid Stimulating Hormone (TSH) 7.840 H Free Thyroxine 1.40 Medications Medication Current Medications Allopurinol (Zyloprim) 100 mg DAILY PO Last administered on 09/10/18 09:32; Admin Dose 100 MG; Start 09/08/18 at 09:00 Aspirin (Halfprin) 81 mg DAILY PO Last administered on 09/10/18 09:31; Admin Dose 81 MG; Start 09/08/18 at 09:00 Calcium/Vitamin D (Oyster Shell/ Vit-D (500/200)) 1 tab DAILY PO Last administered on 09/10/18 09:32; Admin Dose 1 TAB; Start 09/08/18 at 09:00 Ferrous Sulfate (Ferrous Sulfate (Ec)) 650 mg DAILY PO Last administered on 09/10/18 09:31; Admin Dose 650 MG; Start 09/08/18 at 09:00 Megestrol Acetate (Megace) 40 mg DAILY PO Last administered on 09/10/18 09:32; Admin Dose 40 MG; Start 09/08/18 at 09:00 Tamsulosin HCl (Flomax) 0.4 mg DAILY@2100 PO Last administered on 09/09/18 20:30; Admin Dose 0.4 MG; Start 09/08/18 at 21:00 Ceftriaxone Sodium 50 ml @ 100 mls/hr Q24H IVPB Last administered on 09/09/18 20:29; Admin Dose 100 MLS/HR; Start 09/07/18 at 20:00 Heparin Sodium (Porcine) (Heparin (5000 Units/1ml)) 5,000 unit BID SC Last administered on 09/10/18 09:35; Admin Dose 5,000 UNIT; Start 09/07/18 at 21:00 Sodium Bicarbonate 75 meq/Dextrose 1,000 ml @ 50 mls/hr Q20H IV Last administered on 09/09/18 16:26; Admin Dose 50 MLS/HR; Start 09/08/18 at 10:00 Metoprolol Succinate (Toprol Xl) 50 mg BID PO Last administered on 09/10/18 09:32; Admin Dose 50 MG; Start 09/09/18 at 09:00 Atorvastatin Calcium (Lipitor) 20 mg HS PO Last administered on 09/09/18 20:29; Admin Dose 20 MG; Start 09/09/18 at 21:00 Polyethylene Glycol (Miralax) 8.5 gm DAILY PO Last administered on 09/10/18 09:32; Admin Dose 8.5 GM; Start 09/10/18 at 09:00 Docusate Sodium (Colace) 100 mg BID PO Last administered on 09/10/18 09:32; Ad min Dose 100 MG; Start 09/10/18 at 09:00 Dronedarone (Multaq) 400 mg BID WITH MEALS PO Last administered on 09/10/18 09:31; Admin Dose 400 MG; Start 09/10/18 at 07:55 TIM MOSELEY NP Sep 10, 2018 11:14
--- NOTE | 2018-09-11 00:45 | DS ---
DATE OF ADMISSION: 09/07/2018 DATE OF DISCHARGE: 09/10/2018 HOSPITAL COURSE: This is an 88-year-old male with a past medical history of hypertension, history of coronary artery disease, peripheral vascular disease, dyslipidemia, CKD stage IV, history of bilater al hydroureteronephrosis, status post bilateral ureteral double-J stent placement, who presented to [facility] for fever or chills. The patient in the emergency room was noted to have pyuria and tachycardia, was admitted for UTI and sepsis. During the hospital stay, the patient was seen by infectious disease, Dr. Burgos. The patient was placed on antibiotic therapy. Cultures were obtained, which were negative. The patient has defervesced and is currently stable. We will comple te an outpatient course of oral antibiotics. The patient also on admission was tachycardic, was seen by siphon operator, Dr. Rothman. The patient was placed on a beta kiet with improvement of tachycard ia. The patient had no further episodes of chest pain or shortness of breath. In terms of patient's bilateral hydroureteronephrosis, the patient was seen by urologist, Dr. Slater. A repeat CT scan s howed no significant change. Per Dr. Slater, the patient is recommended to follow up at [facility] for de finitive therapy and possible ureterolithiasis. Currently, no further intervention was performed. T he patient also on admission noted to have acute kidney injury, which was felt to be secondary to hem odynamics. The patient's renal function is improving with IV hydration. Currently, at this time, th e patient is stable, no acute distress. He will be discharged home where he will follow up with joe romo in 1 weeks' time for a lab check. At the time of discharge, the patient is stable, no acute distress. FINAL DIAGNOSES: 1. Sepsis secondary to urinary tract infection, improving. The patient will complete outpatient cou rse of antibiotics. 2. Nonoliguric acute kidney injury on top of chronic kidney disease, stage IV. Etiology is secondar y to hemodynamics. Renal function is returning to baseline. 3. Chronic bilateral hydroureteronephrosis. Etiology is unclear. The patient is status post double -J stent placement. Continue to monitor. 4. Metabolic acidosis secondary to acute kidney injury, improving. The patient will continue outpat ient on Bicitra. 5. Mild hyperkalemia, resolved. 6. Anemia. Monitor hemoglobin and hematocrit levels. 7. Hypertension. 8. Arrhythmia with PVCs. 9. Coronary artery disease. 10. History of peripheral vascular disease. 11. Hypertension. 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 13. Gastrointestinal and deep venous thrombosis prophylaxis. At the time of discharge, the patient is stable, in no acute distress. FINAL MEDICATIONS: Please see reconciliation list. The patient to follow up with primary care physician in 1 week's time. Dictated By: LORENZO FINK/VINICIO Conf#: [id number] DID#: [id number]
== END 2018-09-10 11:25 | disposition home health service (06) | DRG 872 ==
LOC: E/R 08:49 → TEL 13:43
PROVIDERS: ADMIT Internal Medicine; ATTEND Internal Medicine
DX: A41.9 Sepsis, unspecified organism (principal); N13.6 Pyonephrosis; E87.0 Hyperosmolality and hypernatremia; N18.4 Chronic kidney disease, stage 4 (severe); N17.9 Acute kidney failure, unspecified; E87.2 Acidosis; E87.5 Hyperkalemia; E78.5 Hyperlipidemia, unspecified; I25.10 Atherosclerotic heart disease of native coronary artery without angina pectoris; I73.9 Peripheral vascular disease, unspecified; M81.0 Age-related osteoporosis without current pathological fracture; K40.90 Unilateral inguinal hernia, without obstruction or gangrene, not specified as recurrent; I12.9 Hypertensive chronic kidney disease with stage 1 through stage 4 chronic kidney disease, or unspecified chronic kidney disease; D64.9 Anemia, unspecified; Z95.820 Peripheral vascular angioplasty status with implants and grafts; I25.2 Old myocardial infarction; Z79.82 Long term (current) use of aspirin; Z95.5 Presence of coronary angioplasty implant and graft; Z95.1 Presence of aortocoronary bypass graft
CPT/HCPCS: 36415; 71045; 74176; 80048; 80053; 80061; 81001; 82150; 83036; 83605; 83690; 83735; 84100; 84439; 84443; 84484; 85025; 85610; 85730; 87086; 93005; 93306; 96374; 96375; 97116; 97162; J0696; J1644; J2270; J2405; J7030; J7070

== ENCOUNTER 2018-10-28 10:12 | Day surgery (SDC) | payer MEDICARE, OTHER ==
[2018-10-27 17:28] VITALS: Ht 162.6 cm; Wt 66.8 kg
[~2018-10-28] VITALS: Ht 162.6 cm; Wt 66.8 kg
[2018-10-28] VITALS (12 sets, daily range): BP systolic 111–135; BP diastolic 59–65; PULSE 64–78; RESP 15–18
--- NOTE | 2018-10-28 07:48 | HPN ---
Date/Time of Note Date/Time of Note DATE: 10/28/18 TIME: 07:48 Interval H&P Admission Note Pt. seen H&P reviewed: No system changes REGGIE RESENDIZ MD Oct 28, 2018 07:48
[~2018-10-28 10:12] MED LIST changes: +APIX2.5T PO; +ASPI-817 PO; -ASPI81TA52 PO; +CALC500T91 PO; +CYAN-23 PO; +CYAN100080 PO; +DRON400T2 PO; +METO-319 ORAL; +TAMS-14 PO; -TAMS0.4C2 PO
[2018-10-28] MEDS ORDERED: LACTATED RINGER'S 1,000 ML IV SCH (12:00)
--- NOTE | 2018-10-28 12:21 | PREAC ---
Date/Time of Note Date/Time of Note DATE: 10/28/18 TIME: 12:18 Anesthesia Eval and Record Evaluation Time Pre-Procedure Interview DATE: 10/28/18 TIME: 12:18 Age 88 Sex male NPO: 8 hrs Preoperative diagnosis Hydronephrosis Planned procedure Cystoscopy, removal and replacement of bilateral ureteral JJ stent Past Medical History Past Medical History: Includes Cardio: HTN, Dyslipidemia, CAD, PTCA/Stent, Other (Peripheral vascular disease s/p bypass) Endo: Other Pulm: Smoking Hx GI: GERD Heme: Anemia Surgery & Anesthesia Issues No known issue Meds Anticoagulation: No Beta Ryley within 24 hr: Yes Reported Medications Allopurinol* (Allopurinol*) 100 Mg Tablet, 100 MG PO DAILY, TAB 10/28/18 Calcium Carbonate ([id number]) 500 Mg Tablet, 500 MG PO DAILY, TAB 10/28/18 Apixaban* (Eliquis*) 2.5 Mg Tablet, 2.5 MG PO QHS, TAB 10/28/18 Ferrous Sulfate* (Ferrous Sulfate*) 325 Mg Tabec, 325 MG PO BID, TAB 10/28/18 Cyanocobalamin* (Vitamin B-12*) 1,000 Mcg Tablet.sa, 1000 MCG PO DAILY, TAB 10/28/18 Dronedarone Hydrochloride* (Multaq*) 400 Mg Tablet, 400 MG PO BID, TAB 10/28/18 Icosapent Ethyl (VASCEPA) 1 Gm Capsule, 1 GM PO BID, CAP 10/28/18 Metoprolol Succinate* (Toprol XL*) 50 Mg Tab.er.24h, 1 TAB ORAL BID 10/28/18 Amlodipine Besylate* (Norvasc*) 5 Mg Tablet, 5 MG PO DAILY, TAB 09/07/18 Tamsulosin Hcl* (Flomax*) 0.4 Mg Cap.er.24h, 0.4 MG PO DAILY, CAP 09/07/18 Discontinued Reported Medications Allopurinol* (Allopurinol*) 100 Mg Tablet, 100 MG PO DAILY, TAB 09/07/18 Aspirin* (Aspirin* EC) 81 Mg Tablet.dr, 81 MG PO DAILY, TAB 09/07/18 Calcium Carbonate/Vitamin D3 (OYSTER SHELL 500 MG + VIT D TB) 1 Each Tablet, 1 EACH PO DAILY, TAB 09/07/18 Ferrous Sulfate* (Ferrous Sulfate*) 325 Mg Tabec, 650 MG PO DAILY, TAB 09/07/18 Megestrol Acetate* (Megestrol Acetate*) 40 Mg Tablet, 40 MG PO DAILY, TAB 09/07/18 Cyanocobalamin (Vitamin B-12) (Vitamin B-12) 1,000 Mcg Capsule, 1000 MCG PO DAILY, CAP 09/07/18 Icosapent Ethyl (VASCEPA) 1 Gm Capsule, 1 GM PO DAILY, CAP 09/07/18 Current Medications Lactated Ringer's 1,000 ml @ 30 mls/hr Q24H IV Last administered on 10/28/18at 12:06; Admin Dose 30 MLS/HR; Start 10/28/18 at 12:00 Meds reviewed: Yes Allergies Coded Allergies: No Known Allergy (Unverified , 09/07/18) Allergies Reviewed: Yes Labs/Studies Labs Reviewed: Reviewed by anesthesiologist test: N/A Pre-procedure Exam Last vitals Vital Signs Date Temp Pulse Resp B/P (MAP) Pulse Ox O2 O2 Flow FiO2 Time Delivery Rate 10/28/18 97.9 78 16 129/59 98 Room Air 12:07 (82) Airway: Adequate mouth opening Mallampati: Mallampati I Teeth: Abnormal (Full dentures removed) Lung: Normal Heart: Normal ASA Physical Status ASA physical status: 3 Emergency: None Planned Anesthetic General/MAC: ETT, LMA Planned Pain Management Parenteral pain med Pre-operative Attestations Prior to commencing anesthesia and surgery, the patient was re-evaluated, there was verification of: *The patient's identity *The results of appropriate recent lab work and preoperative vital signs *The above evaluation not changing prior to induction *Anesthetic plan, risk benefits, alternative and complications discussed with patient/family; questions answered; patient/family understands, accepts and wishes to proceed. ADILIA CALVO MD Oct 28, 2018 12:21
[2018-10-28] MEDS ORDERED: IOHEXOL 300MG/ML 30 ML BTL ONE (12:36)
[2018-10-28] MEDS ORDERED: MEPERIDINE 100 MG INJ ONE (12:39)
[2018-10-28] MEDS ORDERED: ROCURONIUM 50 MG INJ ONE (12:39)
[2018-10-28] MEDS ORDERED: EPHEDrine 25 MG/5 ML SYG ONE (12:39)
[2018-10-28] MEDS ORDERED: CEFAZOLIN 1 GM INJ ONE (12:39)
[2018-10-28] MEDS ORDERED: LIDOCAINE 2% (SDV) 5 ML INJ ONE (12:39)
[2018-10-28] MEDS ORDERED: GLYCOPYRROLATE 0.4 MG INJ ONE ×2 (12:39→13:44)
[2018-10-28] MEDS ORDERED: PROPOFOL 20 ML ONE (12:39)
[2018-10-28] MEDS ORDERED: SUCCINYLCHOLINE CHLORIDE 100 MG/5 ML SYG IV ONE (12:39)
[2018-10-28] MEDS ORDERED: NEOSTIGMINE 3 MG/3 ML SYRINGE ONE (12:39)
[2018-10-28] MEDS ORDERED: LIDOCAINE 2% 20 ML UROJET SYRINGE ONE (13:21)
[2018-10-28] MEDS ORDERED: EPHEDrine 25 MG/5 ML SYG IV PRN (14:00)
[2018-10-28] MEDS ORDERED: LABETALOL HCL 20MG INJ IV PRN (14:00)
[2018-10-28] MEDS ORDERED: hydrALAzine 20 MG INJ IV PRN (14:00)
[2018-10-28] MEDS ORDERED: ONDANSETRON 4 MG INJ IV PRN (14:00)
[2018-10-28] MEDS ORDERED: MIDAZOLAM 1 MG/ML 2 ML INJ IV PRN (14:00)
[2018-10-28] MEDS ORDERED: METOCLOPRAMIDE 10 MG INJ IV PRN (14:00)
[2018-10-28] MEDS ORDERED: HYDROmorphONE 1 MG/5 ML IV SYRINGE IV PRN ×3 (14:00)
[2018-10-28] MEDS ORDERED: MEPERIDINE 25 MG INJ IV PRN (14:00)
[2018-10-28] MEDS ORDERED: FENTAnyl 50 MCG/ML VIAL IV PRN ×3 (14:00)
[2018-10-28] MEDS ORDERED: DIPHENHYDRAMINE 50 MG INJ IV PRN (14:00)
--- NOTE | 2018-10-28 14:05 | OPR ---
Date/Time of Note Date/Time of Note DATE: 10/28/18 TIME: 13:47 Operative Report Procedure Date: Oct 28, 2018 Preoperative Diagnosis Bilateral hydronephrosis secondary to ureteral obstruction Postoperative Diagnosis Same Operation/Procedure Performed Cystoscopy, removal of bilateral JJ stents, insertion of right ureteral JJ stent 6 Guyanese by 22, left retrograde pyelogram and insertion of left ureteral JJ stent 7 Guyanese by 24cm long. Surgeon see signature line Asset Management Coordinator telecommunications technician Anesthesia Type: general Anesthesiologist: ADILIA CALVO MD Estimated Blood Loss: none Transfusion none Specimen None Grafts/Implants Right ureteral JJ stent 6 Guyanese by 22 cm long and left ureteral JJ stent 7 Guyanese by 24 cm long Complications none Pt Condition Post Procedure: stable Disposition: PACU Indications Bilateral hydronephrosis secondary to ureteral obstruction and strictures Procedure Description The patient was brought to the operating room and general anesthesia was induced. The patient was then positioned in the lithotomy position. He was given 1 g of Ancef at the start of the procedure. Timeout was done and the patient was identified by his name, birthdate and the procedure. #22 Guyanese cystoscope sheath was introduced under direct vision through the penile urethra all the way to the bladder. The distal ends of the old JJ stents were visualized. First I removed the left ureteral JJ stent then the right ureteral JJ stent using a the rigid grasper. Then I used a 5 Guyanese open ended ureteral catheter and cannulated the left ureter and advanced a 0.035 zip wire into the left ureter and attempted to advance it to the kidney however that reached an area in the proximal ureter and would not advance and it will curl back and come down. I tried multiple times unsuccessfully then I decided to do a retrograde pyelogram on that side and injected contrast material Isovue mixed with 50-50 of normal saline and one could see that the ureter is constricted at that level where the wire would not advance. No contrast material would go up to the kidney. I kept on trying with the straight tip zip wire but that would not go in. Then I did go ahead and do the right side it I cannulated the right ureteral orifice with the 5 Guyanese open ended and advanced the wire at this time on the right side. It did go up to the kidney and then I removed the open ended leaving the zip wire into the kidney and then I inserted a 6 Guyanese by 22 JJ stent on the right side. Then I went back to the left side and I then advanced the open ended ureteral catheter up to the level of obstruction. I injected 2% lidocaine gel mixed with equal amount of sterile saline to lubricate the ureter and also injected the contrast material and one could see the constriction in the ureter. Then I tried to use a sensor wire 0.035 and that also would not go in. Then I did use a angled tip 0.035 zip wire and after some manipulation that did go up to the kidney without a problem and once it went into the kidney then I removed the open ended and inserted a 7 Guyanese by 24 cm long JJ stent and had its proximal end curling into the kidney and the distal end curling into the bladder. The bladder was then emptied and the patient was transferred to recovery room in a stable and satisfactory condition. REGGIE RESENDIZ MD Oct 28, 2018 14:04
[2018-10-28] MEDS ORDERED: HYDROCODONE/APAP (5/325) TAB PO PRN (14:30)
--- NOTE | 2018-10-28 14:59 | PAC ---
Date/Time of Note Date/Time of Note DATE: 10/28/18 TIME: 14:59 Post-Anesthesia Notes Post-Anesthesia Note Last documented vital signs Vital Signs Date Temp Pulse Resp B/P (MAP) Pulse Ox O2 O2 Flow FiO2 Time Delivery Rate 10/28/18 64 15 129/59 95 Room Air 14:46 (82) 10/28/18 6.0 14:11 10/28/18 99.0 14:01 Activity: WNL Respiratory function: WNL Cardiovascular function: WNL Mental status: Baseline Pain reasonably controlled: Yes Hydration appropriate: Yes Nausea/Vomiting absent: Yes Comments BT: 98.8 ADILIA CALVO MD Oct 28, 2018 14:59
== END 2018-10-28 15:25 | disposition home or self-care (01) ==
LOC: SDS 10:12
PROVIDERS: ATTEND Urology
DX: N13.2 Hydronephrosis with renal and ureteral calculous obstruction (principal); I10 Essential (primary) hypertension; I25.10 Atherosclerotic heart disease of native coronary artery without angina pectoris; E78.5 Hyperlipidemia, unspecified
CPT/HCPCS: 52332; 74430; C2617; J2175; J2710; Q9967; J0690